=== PATIENT | female | born 1940 | race Caucasian/White ===

== ENCOUNTER → 2023-07-18 08:51 | Outpatient (REF) | payer MEDICARE, OTHER, SELFPAY | LOC: HWRAD 08:51 | PROVIDERS: ATTENDING PHYSICIAN Family Medicine | DX: M25.561 Pain in right knee (principal) | CPT/HCPCS: 73564 ==

== ENCOUNTER → 2023-09-08 11:12 | Outpatient (REF) | payer MEDICARE, OTHER, SELFPAY | LOC: HWRAD 11:12 | PROVIDERS: ATTENDING PHYSICIAN Family Medicine | DX: R31.9 Hematuria, unspecified (principal) | CPT/HCPCS: 74177; Q9967 ==

== ENCOUNTER 2023-10-07 18:32 | Inpatient (IN) | payer MEDICARE, OTHER, SELFPAY ==
[2023-10-07] VITALS (8 sets, daily range): BP systolic 122–151; BP diastolic 54–85; BMI 24.6
[2023-10-07] MEDS: TORADOL 30 MG IM (15:21)
[2023-10-07 15:30] LABS: % Basophils 0.2 % (0-2); % Eosinophils 0.5 % (0-6); % Immature Granulocytes 0.3 % (0-0.5); % Lymphocytes 19.6 % (20.5-51.1); % Monocytes 6.9 % (1.7-9.3); % Neutrophils 72.5 % (42.2-75.2); Absolute Eosinophils 0.1 10^3/uL (0-0.7); Absolute Lymphocytes 1.9 10^3/uL (1.2-3.4); Absolute Monocytes 0.7 10^3/uL (0.1-0.6); Absolute Neutrophils 7.2 10^3/uL (1.4-6.5); Hematocrit 38.4 % (37.0-47.0); Hemoglobin 12.7 g/dL (12.0-16.0); Mean Corp Hgb Conc. 33.1 g/dL (33.0-37.0); Mean Corpuscular Hgb 29.3 pg (27.0-31.0); Mean Corpuscular Volume 88.7 fL (81.0-99.0); Mean Platelet Volume 11.1 fL (7.4-10.4); Nucleated Red Blood Cells % 0 %; Platelet Count 167 10^3/uL (130-400); Red Blood Cell Count 4.33 10^6/uL (4.20-5.40); Red Cell Dist. Width 13.9 % (11.5-14.5); White Blood Cell Count 9.9 10^3/uL (4.8-10.8)
[2023-10-07 15:50] LABS: ALT (SGPT) 31 U/L (0-35); AST (SGOT) 38 U/L (14-36); Albumin 4.5 g/dl (3.5-5.0); Alkaline Phosphatase 112 U/L (38-126); Blood Urea Nitrogen 21 mg/dl (7-17); Carbon Dioxide 26 mmol/L (22-30); Chloride 102 mmol/L (98-107); Glucose 94 mg/dl (70-99); Sodium 136 mmol/L (135-145); Total Protein 8.3 g/dl (6.3-8.2); eGFR > 60.00
[2023-10-07] MEDS: LASIX 40 MG IV (17:19)
--- NOTE | 2023-10-07 17:22 | ED.GENMED ---
History of Present Illness
General
Chief Complaint: Musculo-Skeletal Complaint
Source: patient and family
Exam Limitations: none
Time Seen by Provider: 10/07/23 14:11
Travel History
Have you had any contact with someone who has COVID-19?: No
Do you have any symptoms of coronavirus? Fever > 100 degrees, chills, cough, shortness of breath, sore throat, loss of taste or smell, muscle aches, or headache?: No
History of Present Illness
History of Present Illness:
83-year-old female presents with joint pain of the right knee and left hip. Also general weakness. Later on in the middle of her evaluation the daughter noted she is also had some shortness of breath the last few days and is noticed she is much
more short of breath here today. She denies chest pain fever or cough.
Past History
Past History
ED Past Medical History: GERD, HTN, Hypercholesterolemia and Other (Chronic back pain)
ED Past Surgical History: None
Social History
Tobacco: Non-smoker
Alcohol: Occasional
Personal:
Living: with family
Employment: Retired
Review of Systems
Review of Systems
All Other Systems: Not applicable
Constitutional: Denies fever
Cardiac: Denies chest pain or syncope
ABD/GI: Reports no symptoms
Phy Exam
Physical Exam
Physical Exam:
GENERAL: Alert and oriented. Mildly tachypneic at rest
EYE: Orbits normal.
NECK: Supple, no significant adenopathy.
ENT: Pharynx without erythema
CARDIAC: Regular rate and rhythm without any obvious murmurs.
LUNGS: Mildly tachypneic. Rales in both bases
ABDOMEN: Soft, without focal tenderness or distention
NEUROLOGICAL: Alert and oriented , grossly non-focal
SKIN: Warm and dry, no rash or lesion, no discoloration, skin intact.
MUSCULOSKELETAL: No edema,no deformity.Good color. Good range of motion of the right knee. Mild tenderness over the left greater trochanter. All other extremities negative
PSYCH: Normal and appropriate interaction.
Course
Orders/Labs/Results
Orders:
Orders
10/07/23 Breakfast
Cholesterol Lowering
At Your Request: Full Participation
Fluid Restriction: 1500 mL/day (50 oz)
Cholesterol Lowering: Sodium, 2 Gram
10/07/23 14:45
Ketorolac [Toradol] 30 mg IM NOW STA
CXR2 [CR Chest - 2 Views ] Urgent
Comment:
Reason For Exam: Short of breath
Hip, Left 2-3 Views [CR Hip - LT w/wo Pel 2-3 Vw*] Urgent
Comment:
Reason For Exam: Nontraumatic left hip pain
Include a pelvis x-ray?: No
Knee, Right 4 or More Views [CR Knee- Right 4 Or More View*] Urgent
Comment:
Reason For Exam: Nontraumatic progressive pain
10/07/23 14:47
EKG [Electrocardiogram (*1)] Urgent
Reason for Study: Shortness of Breath
EKG- Treatment ONCE
10/07/23 14:55
CMP [Comprehensive Metabolic Panel] Urgent
Complete Blood Count/With Diff Urgent
10/07/23 16:35
Add On- LAB Urgent
Tests Added?: probnp
IV Insert/Care/Rem.- Treatment PRN
10/07/23 16:53
NT-proBNP Urgent
Troponin I Urgent
10/07/23 16:56
Furosemide [Lasix] 40 mg IV NOW STA
10/07/23 18:12
Admit/Transfer Patient As Directed
Co-Sign Provider:
Level of Care: Inpatient admission
Assign to:: Telemetry
Physician / Group: mariama kennedy
Diagnosis: Acute CHF exacerbation
Reason for Telemetry: Arrhythmia
Date to Stop Telemetry: 10/10/23
Time to Stop Telemetry: 11:00
Reason for Hospitalization: Acute CHF exacerbation
Expected length of stay greater than two midnights?: Yes
ELOS- Estimated Length of Stay in days: 3
I certify the patient meets the requirements for IP care: Yes
Nursing to Place Non Medication Order As Directed
Physician Order: notify MD when med rec done
Above order entered?: Yes
10/07/23 18:13
Code Status As Directed
Resuscitation Status: Full Code
10/07/23 18:16
DX Deep Vein Thrombosis Video Routine
10/07/23 18:17
CARDIOLOGY CONSULT Routine
Consulting Provider: Jacinta Blackburn
Was physician already notified: Yes
10/07/23 18:18
Venous Doppler Lwr Ext Bilat [US Periph Venous LOWER Ext Edgar] Urgent
Comment:
Reason For Exam: LE swelling
10/07/23 18:22
Ot Eval And Treat Routine
Pt Eval And Treat Routine
Activity Level: As Tolerated
10/07/23 18:23
Hydrocodone 7.5/APAP 325 [[place] 7.5/325] 1 tablet PO Q6HPRN PRN
Lorazepam [Ativan] 0.5 mg PO TIDPRN PRN
10/07/23 19:50
Bisacodyl [Dulcolax] 10 mg RECTAL [id number] PRN
Docusate W/Senna [Senokot-S] 1 tablet PO BIDPRN PRN
Polyethylene Glycol Powder [Miralax] 17 grams PO DAILYPRN PRN
10/07/23 19:50
Echo 2D MMode Color/Doppler [Echo 2D MMode Color/Doppler] Routine
Reason for Study: CHF
Activity As Directed
Activity Level: As Tolerated
Intake/ Output As Directed
Frequency: Per unit guidelines
Sequential Compression Device [Pneumatic Compression Sleeves] As Directed
Type: Knee high
Vital Signs As Directed
Frequency: Per unit guidelines
Weight As Directed
Frequency: Daily
Pulse Ox/spot Check [RESP] Routine
Quantity: 1
DX Deep Vein Thrombosis Video Routine
10/07/23 23:06
Troponin I Q6H
10/08/23 08:00
Furosemide [Lasix] 40 mg IV DAILY
Pantoprazole [Protonix] 40 mg PO DAILY
10/08/23 08:15
Basic Metabolic Panel IN AM
Complete Blood Count/With Diff IN AM
10/08/23 08:32
Troponin I Q6H
10/08/23 18:00
Enoxaparin Sodium [Lovenox] 40 mg SC QPM
10/09/23 06:00
Basic Metabolic Panel IN AM
Complete Blood Count/With Diff IN AM
10/10/23 11:00
DC Protocol for Telemetry ONCE
Abnormal Lab Results
10/07/23
14:55
MPV 11.1 H fL
(7.4-10.4)
Absolute Neuts (auto) 7.2 H 10^3/uL
(1.4-6.5)
Absolute Monos (auto) 0.7 H 10^3/uL
(0.1-0.6)
Lymphocytes % 19.6 L %
(20.5-51.1)
BUN 21 H mg/dl
(7-17)
Total Bilirubin 2.0 H mg/dl
(0.2-1.3)
AST 38 H U/L
(14-36)
Total Protein 8.3 H g/dl
(6.3-8.2)
10/07/23 14:55
10/07/23 14:55
Vital Signs
Initial and Last Documented VS:
Initial Vital Signs
Temp Pulse Resp BP Pulse Ox
98.2 F 64 17 134/59 99
10/07/23 12:14 10/07/23 12:14 10/07/23 12:14 10/07/23 12:14 10/07/23 12:14
Last Documented Vital Signs
Temp Pulse Resp BP Pulse Ox
98.6 F 84 16 147/76 98
10/08/23 07:42 10/08/23 08:12 10/08/23 07:42 10/08/23 08:12 10/08/23 08:00
*Radiology
Radiology exam reviewed: preliminary read by ED provider (CHF) and radiology read reviewed (CHF)
*Pulse Oximetry
Patient hypoxic: no
*EKG
Interpreted by ED Provider?: Yes
Interpretation: abnormal
Comparison EKG: changes noted
Heart Rate: 79
Rate: normal
Rhythm: sinus
Truro: normal axis
Interval: normal interval
QRS Pattern: right bundle branch block
Ischemia: non-specific ST changes
*[employer] Interpretation
Rate: normal
Interpretation: normal
Heart Rate: 80
Rhythm: sinus
*Critical Care Note
Total Time (30-74mins, 75-104mins- exclusive of procedures): Not Applicable
Data Reviewed
Review of Other/Old Records Reveals: Labs and Testing
ED Attending Note
-
Portions of this chart may have been created with voice recognition software.� Occasional wrong word or��sound alike� substitutions may have occurred due to the inherent limitations of voice recognition software.
Discharge Plan
Departure
Patient Disposition: Admit
Date of Disposition: 10/07/23
Time of Disposition: 17:46
Presentation/result/management discussed w/ accepting MD/DO: Hospitalist
Discharge Problem:
CHF
Interventions
Interventions:
*Risk Screen - Suicide Last Done: 10/07/23 19:57
*General Assessment Last Done: 10/07/23 12:14
*Neglect/Abuse Screening Last Done: 10/07/23 19:31
ED- Fall Risk Assessment Last Done: 10/07/23 19:31
*ED COVID-19 Vaccine History Last Done: 10/07/23 12:14
*Nursing Disposition Last Done: 10/07/23 19:31
ED-Musculoskeletal Assessment Last Done: 10/07/23 17:00
Discharge Date and Time
Discharge Date/Time: 10/07/23 19:32
[2023-10-07 17:40] LABS: NT-proBNP 3750 pg/ml
--- NOTE | 2023-10-07 18:16 | HPS.HSE ---
Family Physician
-
Family Physician: Vicente Banerjee
Chief Complaint
-
Shortness of breath, lower extremity pain
History of Present Illness
83-year-old female with past medical history of GERD, hypertension, hyperlipidemia, chronic back pain, osteoarthritis, anxiety came to the hospital with left hip and right knee pain. Patient also noted generalized weakness. While patient was being
evaluated she also had some shortness of breath. Chest x-ray concerning for pulmonary edema. Per daughter at bedside patient supposed to be on furosemide which she is not taking. Denies any chest pain. Denies any abdominal pain, nausea,
vomiting, diarrhea, constipation. X-rays of hip and knee consistent with arthritis.
Medical History
Past Medical History
Past Medical History: Reports Arrhythmia, HTN, Hypercholesterolemia and Other (osteoarthirtis)
Past Surgical History: Reports None
Social History
Tobacco: Non-smoker
Alcohol: Occasional
Family History
Family History: Not pertinent
Allergies / Home Medications
Allergies reflects when Allergies were last updated in [facility].
Home Medications with original date entered in [facility]
Allergy/Medication List:
Allergies
Allergy/AdvReac Type Severity Reaction Status Date / Time
No Known Allergies Allergy Verified 11/08/22 10:39
Home Medications
simvastatin 20 mg tablet 20 mg PO QPM High Cholesterol 09/30/11
amlodipine 5 mg tablet 5 mg PO DAILY Blood Pressure 04/09/12
Lactobac no.2-Bifidobac no.1-S. thermo 112.5 billion cell capsule (Visbiome) 1 cap PO DAILY Gastrointestinal Issue 11/08/22
aspirin 81 mg tablet,delayed release 81 mg PO DAILY Blood Clot Prevention/Tx 11/08/22
hydrocodone 7.5 mg-acetaminophen 325 mg tablet 1 tab PO Q6HPRN PRN moderate pain 11/08/22
lorazepam 0.5 mg tablet 0.5 mg PO QIDPRN PRN anxiety 11/08/22
nitrofurantoin monohydrate/macrocrystals 100 mg capsule 100 mg PO .BIDX5D Infection 11/08/22
rabeprazole 20 mg tablet,delayed release 20 mg PO DAILY Gastrointestinal Issue 11/08/22
Review of Systems
-
History Source: Patient
A 12 point ROS was completed and negative except as noted: Yes
Respiratory: Reports Trouble Breathing
Musculoskeletal: Reports Joint Pain
Physical Exam
Vital Signs
Vital Signs
Temp Pulse Resp BP Pulse Ox
98.2 F 70 17 148/83 99
10/07/23 12:14 10/07/23 17:19 10/07/23 12:14 10/07/23 17:19 10/07/23 12:14
Physical Exam
HEENT: Anicteric and Moist mucous membranes
Respiratory: Clear and Non Labored Respirations; No Wheezes
Cardiac: S1/S2 and Regular Rhythm
Breast: Deferred by me
GI: Soft, Non Tender, Non Distended and Normal Bowel Sounds
Rectal: Deferred by Provider
Genito-urinary: No Cohen
Musculoskeletal: Edema, Left Lower Extremity and Edema, Right Lower Extremity
Neuro: Awake and Alert
Psych: Calm
Laboratory Results
-
10/07/23 14:55
10/07/23 14:55
Laboratory Results
Total Bilirubin 2.0 mg/dl (0.2-1.3) H 10/07/23 14:55
AST 38 U/L (14-36) H 10/07/23 14:55
ALT 31 U/L (0-35) 10/07/23 14:55
Alkaline Phosphatase 112 U/L (38-126) 10/07/23 14:55
Troponin I 0.020 ng/ml 10/07/23 16:53
Data Reviewed
-
Diagnostic Radiology: Report Reviewed by me, Discussed with Patient and Discussed with Family
Lab Data: Labs Reviewed by me, Discussed with Patient and Discussed with Family
Impression/Plan
-
Shortness of breath secondary to acute CHF
Echo 2022 with EF 50 to 55%
BNP elevated
Consult cardiology
start IV Lasix; update echo
Monitor I's and O's, daily weight; fluid restriction
trend trops
Left hip and right knee pain secondary to arthritis
Monitor
PT/OT
History of hypertension
restart home meds when med rec done
History of GERD
History of anxiety
Spinal stenosis
DVTppx
lovenox
Full code; confirmed with patient and daughter
I spent a total of 77 minutes with the patient or on the floor. More than 50% of this time involved counseling and coordination of care.
[2023-10-07] MEDS: ATIVAN 0.5 MG PO (22:17)
[2023-10-07 23:48] LABS: Troponin I 0.018 ng/ml
[2023-10-08] VITALS (8 sets, daily range): BP systolic 114–150; BP diastolic 64–76; PULSE 68; O2SAT 96–100; BMI 23.9
[2023-10-08] MEDS: LASIX 40 MG IV (08:12)
[2023-10-08] MEDS: PROTONIX 40 MG PO (08:12)
[2023-10-08 09:08] LABS: % Basophils 0.2 % (0-2); % Eosinophils 0.7 % (0-6); % Immature Granulocytes 0.4 % (0-0.5); % Lymphocytes 12.2 % (20.5-51.1); % Monocytes 6.5 % (1.7-9.3); Absolute Eosinophils 0.1 10^3/uL (0-0.7); Absolute Lymphocytes 1.1 10^3/uL (1.2-3.4); Absolute Monocytes 0.6 10^3/uL (0.1-0.6); Absolute Neutrophils 7.2 10^3/uL (1.4-6.5); Hematocrit 38.2 % (37.0-47.0); Hemoglobin 12.8 g/dL (12.0-16.0); Mean Corp Hgb Conc. 33.5 g/dL (33.0-37.0); Mean Corpuscular Volume 86.4 fL (81.0-99.0); Mean Platelet Volume 11.2 fL (7.4-10.4); Nucleated Red Blood Cells % 0 %; Platelet Count 207 10^3/uL (130-400); Red Blood Cell Count 4.42 10^6/uL (4.20-5.40); Red Cell Dist. Width 13.5 % (11.5-14.5)
--- NOTE | 2023-10-08 09:18 | CON.CAR ---
Consultation
Consultation Request
Date/Time Consultation Requested: 10/08/2023
Date/Time Consultation Performed: 10/08/2023
Reason for Consultation: CHF
Medical History
-
Chief Complaint: Shortness of breath
History of Present Illness:
83-year-old female, well-known to Dr. White, with past medical history of GERD, hypertension, hyperlipidemia, chronic back pain, osteoarthritis, anxiety came to the hospital with left hip and right knee pain. Patient also noted generalized weakness.
While patient was being evaluated she also had some shortness of breath. Chest x-ray concerning for pulmonary edema.
Patient reported that she was feeling shortness of breath and difficulty to do activity of daily living for the past couple of days. She also noted that she was supposed to be taking Lasix which was prescribed as needed but has not been taking
despite being short of breath and weight gain. She also reported that patient was tachycardic and not herself. Patient lives alone and her daughter was concerned for her wellbeing. She ended up taking her to the ER and was noted to have mild CHF
and pulmonary edema. We are consulted for continued care.
Last echo 01/17/2023: LVEF 50% moderate MR.
Past Medical History
Past Medical History: Arrhythmias, HTN and Hypercholesterolemia
Social History
Tobacco: Non-Smoker
Alcohol: Occasional
Personal: Single
Living: Other (Lives with a cat)
Family History
Family History: Reviewed & Not Pertinent
Allergies / Home Medications
Allergy/AdvReac Type Severity Reaction Status Date / Time
No Known Allergies Allergy Verified 11/08/22 10:39
�Medication �Instructions �Recorded �Confirmed �Type
simvastatin 20 mg tablet 20 mg PO QPM High Cholesterol 09/30/11 11/08/22 History
amlodipine 5 mg tablet 5 mg PO DAILY Blood Pressure 04/09/12 10/08/23 History
Lactobac no.2-Bifidobac no.1-S. 1 cap PO DAILY Gastrointestinal 11/08/22 11/08/22 History
thermo 112.5 billion cell capsule Issue
(Visbiome)
aspirin 81 mg tablet,delayed 81 mg PO DAILY Blood Clot 11/08/22 11/08/22 History
release Prevention/Tx
hydrocodone 7.5 mg-acetaminophen 1 tab PO Q6HPRN PRN moderate pain 11/08/22 10/08/23 History
325 mg tablet
lorazepam 0.5 mg tablet 0.5 mg PO QIDPRN PRN anxiety 11/08/22 10/08/23 History
nitrofurantoin 100 mg PO .BIDX5D Infection 11/08/22 11/08/22 History
monohydrate/macrocrystals 100 mg
capsule
rabeprazole 20 mg tablet,delayed 20 mg PO DAILY Gastrointestinal 11/08/22 10/08/23 History
release Issue
atorvastatin PO QPM 10/08/23 History
Review of Systems
-
History Source: Patient
All other systems: Negative unless noted
Physical Exam
Vital Signs
Temp Pulse Resp BP Pulse Ox
98.6 F 84 16 147/76 98
10/08/23 07:42 10/08/23 08:12 10/08/23 07:42 10/08/23 08:12 10/08/23 08:00
Lab Results
Troponin I 0.018 ng/ml 10/07/23 23:06
Coo-E-Kplmrpgdqwh Pept 3750 pg/ml 10/07/23 16:53
Physical Exam
General: Well Developed, Well Nourished and No Apparent Distress
HEENT: Normocephalic, Anicteric and Moist Mucous Membranes
Respiratory: Crackles and Non Labored Respirations
Cardiac: S1/S2, Regular Rhythm and Murmur
GI: Soft, Non Tender and Non Distended
Musculoskeletal: No Clubbing, No Cyanosis and No Edema
Neuro: Awake, Alert and AO x 3
Impression / Plan
-
83-year-old woman with history of paroxysmal arrhythmia, hypertension, hyperlipidemia, GERD, osteoarthritis and anxiety with moderate mitral regurgitation presented with shortness of breath and swelling in the lower extremities along with difficulty
breathing with exertion.
Acute on chronic heart failure
-Heart failure with preserved ejection fraction last echo in January 2023 shows LVEF of 55%
-Mild acute on chronic heart failure with preserved ejection fraction
-Patient is mildly fluid overloaded and may need 1 to 2 days of IV Lasix.
-Obtain echo in the morning
Mitral regurgitation
-Moderate MR noted in January 2023.
-Mild fluid overload may have exacerbated mitral regurgitation precipitating heart failure decompensation
Data Reviewed
-
EKG: Tracing Personally Visualized and interpreted
Radiology: Report Reviewed by me
Ultrasound: Report Reviewed by me
Labs: Labs Reviewed by me
Old Records: Reviewed
Total Time Spent with Patient (in minutes): 55
[2023-10-08 09:32] LABS: Troponin I 0.029 ng/ml
[2023-10-08 09:33] LABS: Blood Urea Nitrogen 21 mg/dl (7-17); Calcium 9.8 mg/dl (8.4-10.2); Carbon Dioxide 30 mmol/L (22-30); Chloride 97 mmol/L (98-107); Estimated Creatinine Clearance 49 ml/min; Glucose 90 mg/dl (70-99); Potassium 3.5 mmol/L (3.5-5.1); Sodium 139 mmol/L (135-145); eGFR > 60.00
[2023-10-08] MEDS: MIRALAX 17 GRAMS PO (09:33)
--- NOTE | 2023-10-08 10:37 | CM ---
Patient seen bedside.
IA completed.
patient lives alone with her cat.
1 story home with a ramp to enter.
Ambulates with a Rollator.
patient independent prior to admission.
Patient does not drive, her daughter transports.
Patient had VN in the past, thinks it was [facility].
Agreeable to VN if required.
PT/OT evals (P).
PCP: Dr Banerjee
Pharmacy: [facility]
Plan: home with possible [facility]N needs.
--- NOTE | 2023-10-08 12:25 | W.PN.HOSP.TC ---
Today's Communication/Plan
-
Monitor vitals
See plan
PT/OT
Continue with IV Lasix
Update echo
Assessment / Plan
Assessment / Plan
HEENT: Anicteric and Moist mucous membranes
Respiratory: Clear and Non Labored Respirations; No Wheezes
Cardiac: S1/S2 and Regular Rhythm
GI: Soft, Non Tender, Non Distended and Normal Bowel Sounds
Genito-urinary: No Cohen
Musculoskeletal: Edema, Left Lower Extremity and Edema, Right Lower Extremity
Neuro: Awake and Alert
Psych: Calm
Shortness of breath secondary to acute CHF
Echo 2022 with EF 50 to 55%
BNP elevated
Consult cardiology
cw IV Lasix; update echo
Monitor I's and O's, daily weight; fluid restriction
trend trops
Left hip and right knee pain secondary to arthritis
Monitor
PT/OT
History of hypertension
restart home meds when med rec done
History of GERD
History of anxiety
Spinal stenosis
DVTppx
lovenox
Full code; confirmed with patient and daughter on admission
Anticipated Discharge: 24 - 48 hours
Subjective/Interval History
-
Date of Service: October 08, 2023
denies nausea
Objective Data
-
Labs:
Laboratory Results
10/08/23
08:15
WBC 9.0
Hgb 12.8
Hct 38.2
Plt Count 207 D
Sodium 139
Potassium 3.5
Chloride 97 L
Carbon Dioxide 30
BUN 21 H
Creatinine 0.6
Glucose 90
Calcium 9.8
Vital Signs:
Vital Signs
Temp Pulse Resp BP Pulse Ox
98.6 F 84 16 147/76 98
10/08/23 07:42 04/28/24 08:12 10/08/23 07:42 10/08/23 08:12 10/08/23 08:00
I&O
10/07/23 10/08/23 10/09/23
06:59 06:59 06:59
Intake Total 240 / 240
Output Total 2099 / 2099
Balance -1859 / -1859
[2023-10-08] MEDS: KCL 40 MEQ PO (12:40)
[2023-10-08] MEDS: NORVASC 5 MG PO (12:41)
[2023-10-08] MEDS: LOVENOX 40 MG SC (16:48)
[2023-10-08] MEDS: NORCO 7.5/325 1 TABLET PO (22:01)
[2023-10-08] MEDS: ATIVAN 0.5 MG PO (22:05)
[2023-10-09] MEDS: NORCO 7.5/325 1 TABLET PO ×2 (05:17→21:11)
[2023-10-09 06:00] VITALS: BMI 23.1
[2023-10-09 07:26] VITALS: BP 130/69
[2023-10-09 07:59] LABS: % Basophils 0.5 % (0-2); % Eosinophils 3.4 % (0-6); % Immature Granulocytes 0.5 % (0-0.5); % Lymphocytes 24.1 % (20.5-51.1); % Monocytes 10.3 % (1.7-9.3); % Neutrophils 61.2 % (42.2-75.2); Absolute Eosinophils 0.2 10^3/uL (0-0.7); Absolute Lymphocytes 1.5 10^3/uL (1.2-3.4); Absolute Monocytes 0.6 10^3/uL (0.1-0.6); Absolute Neutrophils 3.8 10^3/uL (1.4-6.5); Hemoglobin 11.5 g/dL (12.0-16.0); Mean Corp Hgb Conc. 34.8 g/dL (33.0-37.0); Mean Corpuscular Hgb 29.7 pg (27.0-31.0); Mean Corpuscular Volume 85.3 fL (81.0-99.0); Nucleated Red Blood Cells % 0 %; Platelet Count 215 10^3/uL (130-400); Red Blood Cell Count 3.87 10^6/uL (4.20-5.40); Red Cell Dist. Width 13.5 % (11.5-14.5); White Blood Cell Count 6.1 10^3/uL (4.8-10.8)
[2023-10-09] MEDS: CARDIZEM 5 MG IV (08:33)
[2023-10-09] MEDS: CARDIZEM 125 IV (08:43)
[2023-10-09] MEDS: PROTONIX 40 MG PO (08:46)
[2023-10-09] MEDS: LASIX 40 MG IV (08:46)
[2023-10-09 08:53] LABS: Blood Urea Nitrogen 26 mg/dl (7-17); Calcium 9.1 mg/dl (8.4-10.2); Carbon Dioxide 28 mmol/L (22-30); Chloride 99 mmol/L (98-107); Estimated Creatinine Clearance 42 ml/min; Glucose 97 mg/dl (70-99); Potassium 3.5 mmol/L (3.5-5.1); Sodium 134 mmol/L (135-145); eGFR > 60.00
[2023-10-09] MEDS: NORVASC PO (09:03)
--- NOTE | 2023-10-09 09:14 | W.PN.HOSP.TC ---
Today's Communication/Plan
-
Cardizem IV
Cardiology consult
Stop amlodipine
Assessment / Plan
Assessment / Plan
Gen-AAOx3, NAD
HEENT-NC, AT, anicteric, clear oral mm
Neck-supple
CV-irregular, no M, +S1/S2
Lungs-clear B/L
Abd-soft, NT, ND
Ext-no edema
Musculoskeletal-no cyanosis, clubbing
Skin-warm and dry
Neuro-grossly non-focal
Psych-calm, cooperative
Acute heart failure exacerbation -likely acute heart failure with preserved EF. Await echocardiogram. Currently on IV Lasix 40 mg daily.
Rapid atrial fibrillation -suspect paroxysmal atrial fibrillation history. Atrial fibrillation noted on Holter monitor from 2022. Not on anticoagulation prior to admission. Will defer to cardiology. Cardizem drip started for rate control this
morning.
Hyponatremia -sodium 134. Monitor for now.
Left hip and right knee pain secondary to arthritis
Monitor
PT/OT
Essential hypertension -stop amlodipine as we are starting Cardizem IV.
History of GERD
History of anxiety
Spinal stenosis
Hyperlipidemia
DNR -confirmed with daughter Carissa on the phone today.
Dispo -Home PT versus SNF pending progress with PT.
Daughter Carissa updated on the phone today.
Anticipated Discharge: 24 - 48 hours
Subjective/Interval History
-
Date of Service: October 09, 2023
Patient seen and examined. No complaints.
Objective Data
-
Labs:
Laboratory Results
10/09/23
07:24
WBC 6.1
Hgb 11.5 L
Hct 33.0 L
Plt Count 215
Sodium 134 L
Potassium 3.5
Chloride 99
Carbon Dioxide 28
BUN 26 H
Creatinine 0.7
Glucose 97
Calcium 9.1
Vital Signs:
Vital Signs
Temp Pulse Resp BP Pulse Ox
98.0 F 168 20 138/69 95
10/09/23 07:26 10/09/23 08:33 10/09/23 07:26 10/09/23 08:33 10/09/23 07:26
I&O
10/08/23 10/09/23 10/10/23
06:59 06:59 06:59
Intake Total 240 / 240 650 / 650
Output Total 2100 / 2100 200 / 200 425 / 425
Balance -1860 / -1860 450 / 450 -425 / -425
Review of Systems
-
History Source: Patient
All other systems: Reviewed and negative
--- NOTE | 2023-10-09 09:57 | W.PN.CD ---
Today's Communication / Plan
-
Move Amlodipine to diltiazem
Resume Eliquis
Impression / Plan
-
83-year-old woman with history of paroxysmal arrhythmia, hypertension, hyperlipidemia, GERD, osteoarthritis and anxiety with moderate mitral regurgitation presented with shortness of breath and swelling in the lower extremities along with difficulty
breathing with exertion.
Acute on chronic HFpEF
- For echo
- Will check cost of SGLT inhibitors and ARNI
- Doing well with diuresis
- Na+/fluid restriction, education
Mitral regurgitation
-Moderate MR noted in January 2023.
-Mild fluid overload may have exacerbated mitral regurgitation precipitating heart failure decompensation
AFib,
- Was on Eliquis per PCP office note 08/2023
- Was in AFib for 24 hrs on Holter dated 12/2022
- Was in sinus on admit
- Likely paroxysmal but may have persistent form
- Will add rate control
- Resume Eliquis 2.5 BID (stop ASA) (age and weight => 2.5 bid for AFib)
HTN
Memory
- Is there memory impairment? Pt cannot provide details on recent medical issues/history
Subjective:
Comfortable
Physical Exam
Vital Signs/Labs
Vital Signs
Temp Pulse Resp BP Pulse Ox
98.0 F 168 20 138/69 95
10/09/23 07:26 10/09/23 08:33 10/09/23 07:26 10/09/23 08:33 10/09/23 07:26
10/08/23 10/09/23 10/10/23
06:59 06:59 06:59
Actual Weight 55.537 kg 53.751 kg
10/09/23 07:24
10/09/23 07:24
10/07/23
16:53
Lzd-P-Nybeyovbano Pept 3750
LAB Results
10/07/23 10/07/23 10/08/23
16:53 23:06 08:32
Troponin I 0.020 0.018 0.029
Physical Exam
Constitutional: No acute distress
Cardiovascular: Rhythm/rate is irregular and S1S2 is normal
Respiratory: Respiratory effort normal and Wheeze Absent
GI: Soft and Distention absent
Neuro/Psych: Alert
Data Reviewed
-
Date of Service: October 09, 2023
[2023-10-09 11:00] VITALS: BP 129/87
[2023-10-09] MEDS: ELIQUIS 2.5 MG PO ×2 (11:46→19:43)
--- NOTE | 2023-10-09 12:08 | CM ---
CM received consult for medication costs: Farxiga 10 mg not covered, Jardiance 10 mg $0.00 copay, Entresto 49/51 bid $11.20. CM met with patient, discussed cost of medications, per patient, she is able to afford this. CM discussed PT recommendations
of VN vs SNF, patient declining SNF and would prefer to go home with [facility] as she has had [facility] in the past. TT sent to [facility] for [facility] referral. CM sent TT to Hospitalist with cost of medications, patient reports she is able to afford medications. CM
will continue to follow for discharge planning needs.
Plan; home with [facility] when stable, pending acceptance.
[2023-10-09] MEDS: CARDIZEM 60 MG PO (12:29)
--- NOTE | 2023-10-09 14:42 | VNURNOTE ---
Home Health Liaison met with patient and daughter Carissa at 1300 to discuss [facility] nurse/therapy, visits, schedule and homebound status. Patient is agreeable and understands that visits at home will be 2-3 x per week to assess and teach medical
management. Patient has a scale, unsure if working correctly but her daughter will get a new one if needed.
[facility] brochure provided with contact information. Patient is aware that [facility] will contact her for start of care in 1-2 days after discharge from .
[facility] referral completed in [facility].
[2023-10-09 15:05] VITALS: BP 101/63; PULSE 96; O2SAT 96
[2023-10-09 15:08] VITALS: BP 105/67
[2023-10-09] MEDS: LOPRESSOR 25 MG PO ×2 (17:20→23:02)
[2023-10-09] MEDS: CARDIZEM 90 MG PO ×2 (17:24→21:26)
[2023-10-09 19:15] VITALS: BP 107/66
[2023-10-09] MEDS: ATIVAN 0.5 MG PO (19:43)
[2023-10-09 23:11] VITALS: BP 119/69
[2023-10-10] VITALS (7 sets, daily range): BP systolic 104–125; BP diastolic 58–86; PULSE 73–75; O2SAT 98; BMI 23.5
[2023-10-10] MEDS: NORCO 7.5/325 1 TABLET PO ×2 (05:05→22:25)
[2023-10-10] MEDS: LOPRESSOR 25 MG PO (05:07)
[2023-10-10] MEDS: ELIQUIS 2.5 MG PO ×2 (07:46→20:40)
[2023-10-10] MEDS: CARDIZEM 90 MG PO ×3 (07:46→17:20)
[2023-10-10] MEDS: PROTONIX 40 MG PO (07:46)
[2023-10-10] MEDS: LASIX 40 MG IV (07:49)
[2023-10-10 08:10] LABS: Blood Urea Nitrogen 27 mg/dl (7-17); Calcium 9.4 mg/dl (8.4-10.2); Carbon Dioxide 26 mmol/L (22-30); Chloride 96 mmol/L (98-107); Estimated Creatinine Clearance 33 ml/min; Glucose 101 mg/dl (70-99); Potassium 3.8 mmol/L (3.5-5.1); Sodium 132 mmol/L (135-145); eGFR > 60.00
[2023-10-10] MEDS: ATIVAN 0.5 MG PO ×2 (09:42→20:40)
--- NOTE | 2023-10-10 10:11 | W.PN.HOSP.TC ---
Today's Communication/Plan
-
Echocardiogram
Urine studies
TSH
Fluid restriction
Assessment / Plan
Assessment / Plan
Gen-AAOx3, NAD
HEENT-NC, AT, anicteric, clear oral mm
Neck-supple
CV-irregular, no M, +S1/S2
Lungs-clear B/L
Abd-soft, NT, ND
Ext-no edema
Musculoskeletal-no cyanosis, clubbing
Skin-warm and dry
Neuro-grossly non-focal
Psych-calm, cooperative
Acute heart failure exacerbation -likely acute heart failure with preserved EF. Await echocardiogram. Currently on IV Lasix 40 mg daily.
Rapid atrial fibrillation -suspect paroxysmal atrial fibrillation history. Atrial fibrillation noted on Holter monitor from 2022. Apparently was on Eliquis prior to admission but not listed on admission medications for unclear reasons. Continue
Eliquis. Rate improved on Cardizem and metoprolol.
Hyponatremia -sodium 132. Monitor for now. Check urine studies, TSH. Fluid restriction.
Left hip and right knee pain secondary to arthritis
Monitor
PT/OT
Essential hypertension -stop amlodipine as we are starting Cardizem IV.
History of GERD
History of anxiety
Spinal stenosis
Hyperlipidemia
DNR -confirmed with daughter Carissa on the phone today.
Dispo -Home PT versus SNF pending progress with PT.
Family updated at the bedside.
Anticipated Discharge: Within 24 hours
Subjective/Interval History
-
Date of Service: October 10, 2023
Patient seen and examined. No complaints. Family at the bedside.
Objective Data
-
Labs:
Laboratory Results
10/10/23
06:21
Sodium 132 L
Potassium 3.8
Chloride 96 L
Carbon Dioxide 26
BUN 27 H
Creatinine 0.9
Glucose 101 H
Calcium 9.4
Vital Signs:
Vital Signs
Temp Pulse Resp BP Pulse Ox
97.6 F 75 18 116/80 98
10/10/23 07:00 10/10/23 07:00 10/10/23 07:00 10/10/23 07:00 10/10/23 07:45
I&O
10/09/23 10/10/23 10/11/23
06:59 06:59 06:59
Intake Total 650 / 650 760 / 760
Output Total 200 / 200 1525 / 1525
Balance 450 / 450 -765 / -765
Review of Systems
-
History Source: Patient
All other systems: Reviewed and negative
--- NOTE | 2023-10-10 11:05 | W.PN.CD ---
Today's Communication / Plan
-
Move to Dilt CD 360 in AM
Move to Metoprolol ER 100 q PM
Add Jardiance 10 mg a day
Change Lasix to PO 40 daily
Will need BMP in 2 weeks
Consider adding MRA and ARNI as outpatient
Impression / Plan
-
83-year-old woman with history of paroxysmal arrhythmia, hypertension, hyperlipidemia, GERD, osteoarthritis and anxiety with moderate mitral regurgitation presented with shortness of breath and swelling in the lower extremities along with difficulty
breathing with exertion.
Acute on chronic HFpEF
- Echo 10/09/2023: LVEF 50-55%, mild-mod MR
- Cost of SGLT inhibitors (Jardiance $0 and Entresto $11.20
- Doing well with diuresis => move to PO Lasix
- Na+/fluid restriction, education
- Consider adding MRA and ARNI as outpatient, add Jardiance now
Mitral regurgitation
-Moderate MR noted in January 2023 => now mild to moderate
-Mild fluid overload may have exacerbated mitral regurgitation precipitating heart failure decompensation
AFib,
- Back on Eliquis per PCP office note 08/2023
- Was in AFib for 24 hrs on Holter dated 12/2022
- Was in sinus on admit
- Rate of AFib/flutter now well controlled on mod dose dilt/metoprolol = move to once a day dosing
- Likely paroxysmal but may have persistent form
- Will add rate control
- Resume Eliquis 2.5 BID (stopped ASA) (age and weight => 2.5 bid for AFib)
HTN
Memory
- Is there memory impairment? Pt cannot provide details on recent medical issues/history
Subjective:
Comfortable
Physical Exam
Vital Signs/Labs
Vital Signs
Temp Pulse Resp BP Pulse Ox
97.6 F 75 18 116/80 98
10/10/23 07:00 10/10/23 07:00 10/10/23 07:00 10/10/23 07:00 10/10/23 07:45
10/09/23 10/10/23 10/11/23
06:59 06:59 06:59
Actual Weight 53.751 kg 54.686 kg
10/09/23 07:24
10/10/23 06:21
10/07/23
16:53
Ibo-V-Hrlnpaotpjk Pept 3750
LAB Results
10/07/23 10/07/23 10/08/23
16:53 23:06 08:32
Troponin I 0.020 0.018 0.029
Physical Exam
Constitutional: No acute distress
Cardiovascular: Diastolic murmur absent, Rhythm/rate is irregular and S1S2 is normal
Respiratory: Respiratory effort normal and Lungs clear to auscul.
GI: Soft and Distention absent
Neuro/Psych: Alert
Data Reviewed
-
Date of Service: October 10, 2023
[2023-10-10 12:57] LABS: TSH 1.12 uIU/ml (0.47-4.68)
--- NOTE | 2023-10-10 13:12 | CM ---
Patient seen bedside, patient inquiring about receiving her next dose of anxiety medication, nurse made aware. Patient plan return home with [facility]. CM will continue to follow for discharge planning needs.
Plan; home with [facility].
[2023-10-10] MEDS: TOPROL XL 100 MG PO (20:40)
[2023-10-10] MEDS: CARDIZEM PO (23:15)
[2023-10-11 03:35] VITALS: BP 114/67
[2023-10-11 05:25] VITALS: BMI 23.1
[2023-10-11] MEDS: NORCO 7.5/325 1 TABLET PO (05:41)
[2023-10-11 07:22] VITALS: BP 125/70
[2023-10-11 07:37] LABS: Blood Urea Nitrogen 31 mg/dl (7-17); Calcium 9.3 mg/dl (8.4-10.2); Carbon Dioxide 29 mmol/L (22-30); Chloride 94 mmol/L (98-107); Estimated Creatinine Clearance 33 ml/min; Glucose 100 mg/dl (70-99); Potassium 3.7 mmol/L (3.5-5.1); Sodium 130 mmol/L (135-145); eGFR > 60.00
[2023-10-11 07:39] LABS: Glucose - Point of Care 109 mg/dl (70-99)
[2023-10-11] MEDS: CARDIZEM PO (09:16)
[2023-10-11] MEDS: ELIQUIS 2.5 MG PO (09:32)
[2023-10-11] MEDS: JARDIANCE 10 MG PO (09:32)
[2023-10-11] MEDS: PROTONIX 40 MG PO (09:32)
[2023-10-11] MEDS: CARDIZEM CD 360 MG PO (09:32)
--- NOTE | 2023-10-11 09:32 | W.PN.HOSP.TC ---
Today's Communication/Plan
-
Discharge if okay with cardiology
Assessment / Plan
Assessment / Plan
Gen-AAOx3, NAD
HEENT-NC, AT, anicteric, clear oral mm
Neck-supple
CV-irregular, no M, +S1/S2
Lungs-clear B/L
Abd-soft, NT, ND
Ext-no edema
Musculoskeletal-no cyanosis, clubbing
Skin-warm and dry
Neuro-grossly non-focal
Psych-calm, cooperative
Acute heart failure exacerbation -likely acute heart failure with preserved EF. Echocardiogram shows LVEF 55 to 60%, normal regional wall motion, normal RV function, severely dilated left atrium, moderate right atrial dilation, mild AR. Now on
oral Lasix 40 mg daily per cardiology.
Rapid atrial fibrillation -suspect paroxysmal atrial fibrillation history. Atrial fibrillation noted on Holter monitor from 2022. Apparently was on Eliquis prior to admission but not listed on admission medications for unclear reasons. Continue
Eliquis. Rate improved on Cardizem and metoprolol.
Hyponatremia -sodium 130. Fluid restriction. TSH normal. Urine studies not done so far.
Left hip and right knee pain secondary to arthritis
Monitor
PT/OT
Essential hypertension -stop amlodipine as we are starting Cardizem IV.
History of GERD
History of anxiety
Spinal stenosis
Hyperlipidemia
DNR
Dispo -stable for discharge home today with [facility]. Will discuss with cardiology. Outpatient follow-up.
32 minutes spent in discharge process.
Anticipated Discharge: Today
Subjective/Interval History
-
Date of Service: October 11, 2023
Patient seen and examined. No complaints.
Objective Data
-
Labs:
Laboratory Results
10/11/23
05:57
Sodium 130 L
Potassium 3.7
Chloride 94 L
Carbon Dioxide 29
BUN 31 H
Creatinine 0.9
Glucose 100 H
Calcium 9.3
Vital Signs:
Vital Signs
Temp Pulse Resp BP Pulse Ox
97.9 F 86 16 125/70 97
10/11/23 07:22 10/11/23 07:22 10/11/23 07:22 10/11/23 07:22 10/11/23 07:22
I&O
10/10/23 10/11/23 10/12/23
06:59 06:59 06:59
Intake Total 760 / 760 900 / 900
Output Total 1525 / 1525 400 / 400
Balance -765 / -765 500 / 500
Review of Systems
-
History Source: Patient
All other systems: Reviewed and negative
[2023-10-11] MEDS: LASIX 40 MG PO (09:33)
--- NOTE | 2023-10-11 09:48 | W.PN.CD ---
Today's Communication / Plan
-
OK for home on current meds
We will see in office at request of PCP
Impression / Plan
-
83-year-old woman with history of paroxysmal arrhythmia, hypertension, hyperlipidemia, GERD, osteoarthritis and anxiety with moderate mitral regurgitation presented with shortness of breath and swelling in the lower extremities along with difficulty
breathing with exertion.
Acute on chronic HFpEF
- Echo 10/09/2023: LVEF 50-55%, mild-mod MR
- Cost of SGLT inhibitors (Jardiance $0 and Entresto $11.20
- Doing well with diuresis => move to PO Lasix
- Na+/fluid restriction, education
- Consider adding MRA and ARNI as outpatient, continue Jardiance now
Mitral regurgitation
-Moderate MR noted in January 2023 => now mild to moderate
-Mild fluid overload may have exacerbated mitral regurgitation precipitating heart failure decompensation
AFib,
- Back on Eliquis per PCP office note 08/2023
- Was in AFib for 24 hrs on Holter dated 12/2022
- Was in sinus on admit
- Rate of AFib/flutter now well controlled on mod dose dilt/metoprolol
- Likely paroxysmal but may have persistent form
- Will add rate control
- Resume Eliquis 2.5 BID (stopped ASA) (age and weight => 2.5 bid for AFib)
HTN
Memory
- Is there memory impairment? Pt cannot provide details on recent medical issues/history
Subjective:
Comfortable
Physical Exam
Vital Signs/Labs
Vital Signs
Temp Pulse Resp BP Pulse Ox
97.9 F 86 16 125/70 97
10/11/23 07:22 10/11/23 07:22 10/11/23 07:22 10/11/23 07:22 10/11/23 07:22
10/10/23 10/11/23 10/12/23
06:59 06:59 06:59
Actual Weight 54.686 kg 53.6 kg
10/09/23 07:24
10/11/23 05:57
TSH 1.12 uIU/ml (0.47-4.68) 10/10/23 06:21
10/07/23
16:53
Int-Q-Dfnkbqpafpq Pept 3750
Physical Exam
Constitutional: No acute distress
Cardiovascular: Rhythm & rate is regular and Pedal edema is absent
Respiratory: Respiratory effort normal and Lungs clear to auscul.
GI: Soft
Neuro/Psych: Alert
Data Reviewed
-
Date of Service: October 11, 2023
--- NOTE | 2023-10-11 10:00 | W.DS.TRANS ---
DC Summary - Contact Worker [employer]
-
Discharge Instructions:
Discharge Diagnosis/Procedures Heart failure exacerbation, rapid atrial
fibrillation, hyponatremia
Diet Low Cholesterol,Low Fat,2 Gram Sodium,Restrict
fluids to 48 oz
Activity As tolerated
Driving Restrictions No driving
Bathing Restrictions None
Blood Work BMP in 1 week with your primary care doctor
Other Services VN
Instructions: *PCP/Other Commercial Driver Heart Failure Instructions
Stand-Alone Forms:
Changes to Home Medications: Yes
Discharge Medications:
DC Medications w/original date entered in [facility] [facility]
Lactobac no.2-Bifidobac no.1-S. thermo 112.5 billion cell capsule (Visbiome) 1 cap PO DAILY Gastrointestinal Issue 11/08/22
hydrocodone 7.5 mg-acetaminophen 325 mg tablet 1 tab PO Q6HPRN PRN moderate pain 11/08/22
lorazepam 0.5 mg tablet 0.5 mg PO QIDPRN PRN anxiety 11/08/22
rabeprazole 20 mg tablet,delayed release 20 mg PO DAILY Gastrointestinal Issue 11/08/22
atorvastatin PO QPM 10/08/23
apixaban 2.5 mg tablet (Eliquis) 2.5 mg PO BID #60 tabs 10/11/23
diltiazem HCl 180 mg capsule,extended release 24 hr 360 mg (2 x 180 mg) PO DAILY #30 caps 10/11/23
empagliflozin 10 mg tablet (Jardiance) 10 mg PO DAILY #30 tabs 10/11/23
furosemide 40 mg tablet 40 mg PO DAILY #30 tabs 10/11/23
metoprolol succinate 100 mg tablet,extended release 24 hr 100 mg PO DAILY@2000 #30 tabs 10/11/23
polyethylene glycol 3350 17 gram oral powder packet (HealthyLax) 17 g PO DAILYPRN PRN constipation #0 ea 10/11/23
Home Medication Changes
Stop aspirin
Stop amlodipine
Pending Results: No
--- NOTE | 2023-10-11 10:33 | CM ---
Patient seen, discussed plan for discharge home with [facility]N. Patient reports her daughter will provide transportation home when she is ready. IMM reviewed, signed, placed in chart. CM discussed cost of Eliquis $11.20. Patient inquiring if she can take
her anxiety medication before discharge. CM will continue to follow for discharge planning needs.
Plan; home with [facility] and daughter.
[2023-10-11 11:30] VITALS: BP 131/73
[2023-10-11] MEDS: ATIVAN 0.5 MG PO (13:27)
== END 2023-10-11 14:14 | disposition home health service (06) | DRG 291 ==
LOC: 4 WEST ACU 18:32
PROVIDERS: Internal Medicine Cardiovascular Disease; ADMITTING PHYSICIAN Internal Medicine; ATTENDING PHYSICIAN Hospitalist; CONSULT PHYSICIAN Internal Medicine Cardiovascular Disease; EMERGENCY PHYSICIAN Emergency Medicine; FAMILY PHYSICIAN Family Medicine
DX: I11.0 Hypertensive heart disease with heart failure (principal); I50.33 Acute on chronic diastolic (congestive) heart failure; I48.19 Other persistent atrial fibrillation; E87.1 Hypo-osmolality and hyponatremia; Z79.82 Long term (current) use of aspirin
CPT/HCPCS: 71046; 73502; 73564; 80048; 80053; 82962; 83880; 84443; 84484; 85025; 93005; 93306; 93970; 96372; 96374; 97110; 97162; 97166; 97530; 97535; 99285

== ENCOUNTER 2023-11-19 16:23 | Inpatient (IN) | payer MEDICARE, OTHER, SELFPAY ==
[2023-11-19] VITALS (16 sets, daily range): BP systolic 109–161; BP diastolic 55–89; BMI 26.8
[2023-11-19 13:00] LABS: % Basophils 0.2 % (0-2); % Eosinophils 0.1 % (0-6); % Immature Granulocytes 0.4 % (0-0.5); % Lymphocytes 10.2 % (20.5-51.1); % Monocytes 6.5 % (1.7-9.3); % Neutrophils 82.6 % (42.2-75.2); Absolute Immature Granulocytes 0.1 10^3/uL (0-0.05); Absolute Lymphocytes 1.6 10^3/uL (1.2-3.4); Absolute Neutrophils 13.1 10^3/uL (1.4-6.5); Hematocrit 38.6 % (37.0-47.0); Hemoglobin 13.2 g/dL (12.0-16.0); Mean Corp Hgb Conc. 34.2 g/dL (33.0-37.0); Mean Corpuscular Hgb 29.3 pg (27.0-31.0); Mean Corpuscular Volume 85.8 fL (81.0-99.0); Mean Platelet Volume 9.7 fL (7.4-10.4); Nucleated Red Blood Cells % 0 %; Platelet Count 212 10^3/uL (130-400); Red Cell Dist. Width 14.4 % (11.5-14.5); White Blood Cell Count 15.8 10^3/uL (4.8-10.8)
[2023-11-19] MEDS: ZOSYN 100 IV (13:09)
[2023-11-19 13:13] LABS: Lactic Acid 1.4 mmol/L (0.7-2.0)
[2023-11-19 13:33] LABS: ALT (SGPT) 556 U/L (0-35); AST (SGOT) 416 U/L (14-36); Albumin 4.3 g/dl (3.5-5.0); Alkaline Phosphatase 417 U/L (38-126); Blood Urea Nitrogen 22 mg/dl (7-17); Calcium 9.8 mg/dl (8.4-10.2); Carbon Dioxide 33 mmol/L (22-30); Chloride 93 mmol/L (98-107); Glucose 111 mg/dl (70-99); Potassium 3.6 mmol/L (3.5-5.1); Sodium 138 mmol/L (135-145); Total Bilirubin 1.2 mg/dl (0.2-1.3); Total Protein 8.3 g/dl (6.3-8.2); eGFR > 60.00
--- NOTE | 2023-11-19 14:30 | PHANOTE ---
med rec note- daughter went home to get patient medication list, used ecw recent admission and pharmacy
--- NOTE | 2023-11-19 15:06 | ED.GENMED ---
History of Present Illness
General
Chief Complaint: Jaw Pain
Source: patient and family
Time Seen by Provider: 11/19/23 12:16
Travel History
Have you had any contact with someone who has COVID-19?: No
Do you have any symptoms of coronavirus? Fever > 100 degrees, chills, cough, shortness of breath, sore throat, loss of taste or smell, muscle aches, or headache?: No
History of Present Illness
History of Present Illness:
83-year-old female presents emergency room complaining of pain and swelling left lower jaw. Patient has been having the symptoms for the past couple weeks but noted symptoms have become worse over the past couple days. Currently she is spitting
out her secretions because she has too much pain to swallow them. She denies any shortness of breath. No true dental pain.
Past History
Past History
ED Past Medical History: GERD, HTN, Hypercholesterolemia and Other (Chronic back pain)
ED Past Surgical History: None
Social History
Tobacco: Non-smoker
Alcohol: Occasional
Personal:
Living: with family
Employment: Retired
Phy Exam
Physical Exam
Physical Exam:
General: Awake, Alert, Oriented X3. No acute distress.
Vitals: unremarkable
Head: Atraumatic
Eyes: Pupils equal, EOMI
Mouth: Some elevation of the tongue tenderness to palpation of the sublingual tissues on the left. No stridor.
Throat: Airway intact, no exudates
Neck: Trachea midline
Lungs: Clear and equal b/l
Heart: Regular rate, no murmurs
Abd: Soft, Nontender, No pulsatile mass
Neuro: Nonfocal
Skin: Warm, dry, no rash
Extremities: pulses equal b/l, no edema
Course
Orders/Labs/Results
Orders:
Orders
11/19/23 11:32
EKG [Electrocardiogram (*1)] Urgent
Reason for Study: Fatigue / Weakness
EKG- Treatment ONCE
11/19/23 12:36
CT Neck With Iv Contrast Urgent
Comment:
Reason For Exam: swelling ? abscess/cesar's
Piperacillin/Tazo 4.5 Gram [Zosyn] 4.5 gram in 100 ml IV NOW
11/19/23 12:51
Complete Blood Count/With Diff Urgent
Comprehensive Metabolic Panel Urgent
Lactic Acid Q4H
Comment: CANCEL 2nd LACTIC ACID IF 1st LACTIC ACID IS LESS THAN 2
Blood Culture Q30M
DEVANTE Source: Blood/Venous
Specimen Description:
Blood Culture Q30M
DEVANTE Source: Blood/Venous
Specimen Description:
11/19/23 Dinner
NPO
Allow oral meds: Yes
Allow clear liquids: Sips of Clears
NPO with Ice Chips: Yes
11/19/23 15:34
Dexamethasone Sod Phosphate [Decadron] 8 mg IV NOW STA
11/19/23 16:10
Lorazepam [Ativan] 0.5 mg PO QIDPRN PRN
11/19/23 16:11
Admit/Transfer Patient As Directed
Co-Sign Provider:
Level of Care: Inpatient admission
Assign to:: ICU
Physician / Group: hospitalist
Diagnosis: left mandibular abscess
Reason for Hospitalization: oropharyngeal abscess with airway impact
Expected length of stay greater than two midnights?: Yes
ELOS- Estimated Length of Stay in days: 2
I certify the patient meets the requirements for IP care: Yes
11/19/23 16:12
Code Status As Directed
Resuscitation Status: Full Code
11/19/23 17:40
Acetaminophen [Tylenol] 650 mg PO Q4HPRN PRN
Dextrose 5%/0.45%Sodchl 1000ML [D5/0.45%NaCl] 1,000 ml IV 40 mls/hr
Ondansetron Injectable [Zofran] 4 mg IV Q6HPRN PRN
Oxycodone [Roxicodone] 5 mg PO Q6HPRN PRN
11/19/23 17:40
ORAL MAXILLO FACIAL CONSULT Urgent
Consulting Provider: Liliam Hebert
Was physician already notified: Yes
Reason for Consult: left submandibular abscess with mass effect
Activity As Directed
Activity Level: With Assistance
Head of Bed-Restrictions As Directed
Vital Signs As Directed
Frequency: Per unit guidelines
DX Deep Vein Thrombosis Video Routine
11/19/23 18:00
Enoxaparin Sodium [Lovenox] 30 mg SC QPM
11/19/23 20:00
Piperacillin/Tazo 3.375 Gram [Zosyn] 3.375 gram in 50 ml IV Q6H
11/19/23 22:00
Metoprolol Xl [Toprol Xl] 100 mg PO HS
11/20/23 05:41
Complete Blood Count/No Diff IN AM
Hepatitis A IgM Antibody IN AM
Hepatitis B Core Ab, IgM IN AM
Hepatitis B Surface Antibody IN AM
Hepatitis B Surface Antigen IN AM
Hepatitis C Antibody IN AM
11/20/23 08:00
Diltiazem Extended Release [Cardizem Cd] 360 mg PO DAILY
Pantoprazole [Protonix IV] 40 mg IV DAILY
Abnormal Lab Results
11/19/23
12:51
WBC 15.8 H 10^3/uL
(4.8-10.8)
Abs Immat Gran (auto) 0.1 H 10^3/uL
(0-0.05)
Absolute Neuts (auto) 13.1 H 10^3/uL
(1.4-6.5)
Absolute Monos (auto) 1.0 H 10^3/uL
(0.1-0.6)
Neutrophils % 82.6 H %
(42.2-75.2)
Lymphocytes % 10.2 L %
(20.5-51.1)
Chloride 93 L mmol/L
(98-107)
Carbon Dioxide 33 H mmol/L
(22-30)
BUN 22 H mg/dl
(7-17)
Glucose 111 H mg/dl
(70-99)
AST 416 H U/L
(14-36)
ALT 556 H* U/L
(0-35)
Alkaline Phosphatase 417 H U/L
(38-126)
Total Protein 8.3 H g/dl
(6.3-8.2)
11/19/23 12:51
11/19/23 12:51
Vital Signs
Initial and Last Documented VS:
Initial Vital Signs
Temp Pulse Resp BP Pulse Ox
99.9 F 69 17 130/67 94
11/19/23 11:02 11/19/23 11:02 11/19/23 11:02 11/19/23 11:02 11/19/23 11:02
Last Documented Vital Signs
Temp Pulse Resp BP Pulse Ox
97.7 F 55 15 123/46 94
11/21/23 11:15 11/21/23 08:25 11/21/23 08:25 11/21/23 11:10 11/20/23 20:49
MDM/Problems Addressed
Differential Diagnosis Includes:
Dental abscess, Cesar angina, angioedema
MDM/Problems Addressed:
Patient presents with pain and swelling noted in her left neck. Imaging was obtained and shows a structure in the sublingual tissue which may represent abscess or dilated salivary duct. Patient symptoms have been progressing. White count noted to
be somewhat elevated. Patient's LFTs also noted to be elevated. Zosyn initiated for potential deep space infection. Given the patient is spitting out her secretions she will be admitted to the intensive care unit for careful airway monitoring.
Case discussed with Dr. Hebert who is on-call for [facility].
*Radiology
Radiology exam reviewed: radiology read reviewed
*Pulse Oximetry
Patient hypoxic: no
*Critical Care Note
Total Time (30-74mins, 75-104mins- exclusive of procedures): Not Applicable
Patient Management
Social determinants of health affecting care: Financial situation
ED Attending Note
-
Portions of this chart may have been created with voice recognition software.� Occasional wrong word or��sound alike� substitutions may have occurred due to the inherent limitations of voice recognition software.
Discharge Plan
Departure
Patient Disposition: Admit
Date of Disposition: 11/19/23
Time of Disposition: 15:13
Admit to: ICU
Presentation/result/management discussed w/ accepting MD/DO: Hospitalist
Condition: Serious
Discharge Problem:
Abscess of sublingual space
Interventions
Interventions:
*Risk Screen - Suicide Last Done: 11/19/23 11:50
*General Assessment Last Done: 11/19/23 11:13
*Neglect/Abuse Screening Last Done: 11/19/23 11:50
ED- Fall Risk Assessment Last Done: 11/19/23 17:09
*ED COVID-19 Vaccine History Last Done: 11/19/23 11:13
*Nursing Disposition Last Done: 11/19/23 17:09
ED-EENT Assessment Last Done: 11/19/23 11:53
ED- Cardiac Assessment Last Done: 11/19/23 11:53
Discharge Date and Time
Discharge Date/Time: 11/19/23 17:30
[2023-11-19] MEDS: DECADRON 8 MG IV (15:45)
--- NOTE | 2023-11-19 15:59 | HPS.HSE ---
Family Physician
-
Family Physician: Vicente Banerjee
Chief Complaint
-
Throat pain and swelling
History of Present Illness
This is an 83-year-old female with past medical history of atrial fibrillation on anticoagulation with Eliquis, diabetes, GERD, presenting to worsening pain and swelling on the lower left side of her mouth and throat.
She has been having swelling and pain in her left lower jaw for a couple weeks. She has been on amoxil for a few days. She is now barely able to swallow due to the pain. She reported a prior episode about 3 years ago with spontaneous resolution.
On exam she has alteration in her voice and is spitting out her secretions. No stridor. The floor of her mouth appears a bit elevated and is tender. She has some swelling an induration of the left submandibular region.
In the ED she had a low-grade temp of 99.9, she was hemodynamically stable, ECG was normal sinus rhythm with a rate of 74 and right bundle unchanged from prior. A CT soft tissue of the neck showed a 3 x 1.5 x 1.5 collection in the left
submandibular region with a mass effect affecting the left oropharyngeal and hypopharyngeal regions. Differential includes abscess versus ductal abnormality. She had leukocytosis to 15,000. CBC otherwise unremarkable. Chemistries within normal
limits. She has elevations in AST as well as ALT.
Medical History
Past Medical History
Past Medical History: Reports Arrhythmia (Permanent Atrial Fibrillation), CHF, GERD, HTN, Hypercholesterolemia and NIDDM
Past Surgical History: Reports None
Social History
Tobacco: Non-smoker
Alcohol: None
Drug: None
Employment: Retired
Family History
Family History: Not pertinent
Allergies / Home Medications
Allergies reflects when Allergies were last updated in [employer].
Home Medications with original date entered in [employer]
Allergy/Medication List:
Allergies
Allergy/AdvReac Type Severity Reaction Status Date / Time
No Known Allergies Allergy Verified 11/19/23 11:16
Home Medications
Lactobac no.2-Bifidobac no.1-S. thermo 112.5 billion cell capsule (Visbiome) 1 cap PO DAILY Gastrointestinal Issue 11/08/22
hydrocodone 7.5 mg-acetaminophen 325 mg tablet 1 tab PO Q6HPRN PRN moderate pain 11/08/22
lorazepam 0.5 mg tablet 0.5 mg PO QIDPRN PRN anxiety 11/08/22
rabeprazole 20 mg tablet,delayed release 20 mg PO QPM Gastrointestinal Issue 11/08/22
atorvastatin 20 mg tablet (Lipitor) 20 mg PO QPM ##0 10/08/23
apixaban 2.5 mg tablet (Eliquis) 2.5 mg PO BID #60 tabs 10/11/23
diltiazem HCl 180 mg capsule,extended release 24 hr 360 mg (2 x 180 mg) PO DAILY #30 caps 10/11/23
empagliflozin 10 mg tablet (Jardiance) 10 mg PO DAILY #30 tabs 10/11/23
furosemide 40 mg tablet 40 mg PO DAILY #30 tabs 10/11/23
polyethylene glycol 3350 17 gram oral powder packet (HealthyLax) 17 g PO DAILYPRN PRN constipation #0 ea 10/11/23
amoxicillin 875 mg-potassium clavulanate 125 mg tablet 1 tab PO BID 11/19/23
metoprolol succinate 100 mg tablet,extended release 24 hr 100 mg PO HS 11/19/23
Review of Systems
-
History Source: Patient
Constitutional: Reports No Symptoms
EENT: Reports Sore Throat, Mouth Pain and Mouth Swelling
Respiratory: Reports No Symptoms
Cardiac: Reports No Symptoms
Abdomen/GI: Reports No Symptoms
: Reports No Symptoms
Musculoskeletal: Reports No Symptoms
Skin: Reports No Symptoms
Neurological: Reports No Symptoms
Endocrine: Reports No Symptoms
Hematologic/Lymphatic: Reports No Symptoms
Psych: Reports No Symptoms
Physical Exam
Vital Signs
Vital Signs
Temp Pulse Resp BP Pulse Ox
99.9 F 84 22 130/55 93
11/19/23 11:02 11/19/23 15:45 11/19/23 15:45 11/19/23 15:00 11/19/23 15:45
Physical Exam
General: Appears in Distress
HEENT: NormoCephalic, Anicteric, Moist mucous membranes and Other (No stridor. The floor of her mouth appears a bit elevated and is tender. She has some swelling an induration of the left submandibular region)
Respiratory: Clear
Cardiac: S1/S2 and Regular Rhythm
Breast: Deferred by me
GI: Soft, Non Tender and Non Distended
Rectal: Deferred by Provider
Genito-urinary: Deferred by me
Musculoskeletal: No Clubbing, No Cyanosis and No Edema
Skin: Warm
Neuro: AO x 3
Hematologic/Lymphatic: No Lymphadenopathy
Psych: Calm
Laboratory Results
-
11/19/23 12:51
11/19/23 12:51
Laboratory Results
Lactic Acid Cancelled 11/19/23 16:45
Total Bilirubin 1.2 mg/dl (0.2-1.3) 11/19/23 12:51
AST 416 U/L (14-36) H 11/19/23 12:51
ALT 556 U/L (0-35) H* 11/19/23 12:51
Alkaline Phosphatase 417 U/L (38-126) H 11/19/23 12:51
Data Reviewed
-
CT Scan: Report Reviewed by me
Medical Tests (Nuc Med, Echo, EKG etc): Image Personally Visualized and interpreted
Lab Data: Labs Reviewed by me
Old Records: Reviewed
Impression/Plan
-
IMPRESSION:
PLAN:
1. Submandibular abscess with mass effect - Swelling and pain x 2 weeks with failure of outpatient abx. Soft tissue abscess of the left submandibular region with mass effect. No stridor currently but has risk of expanding.
- admit to icu for airway management if needed.
- continue zosyn 3.375 q 6 hours for now
- decadron 10mg iv x 1 given in ED, monitor for now
- pain control and antiemetics
- NPO except meds, sips and ice chips fo rnow
- maintenance fluids
- consult to [facility] per ED
- senior center manager consult
2. pAFIB -
- continue rate ocntrol with metoprolol 100 hs
- holding apixaban pending [facility] eval & possible drainage of fluid collection
- continue dilt
3. CHF - stable.
- holding lasix fo rnow
- holding jardiance
4. Transaminitis - Unclear etilogy. No abdominal pain. Possibly induced by new med (augmentin)
- acute hep panel
- RUQ u/s
- trend lft
DVT PPX - lovenox sq while holding apixaban
Full Code
[2023-11-19] MEDS: ATIVAN 0.5 MG PO ×2 (16:44→23:47)
--- NOTE | 2023-11-19 16:59 | CON.ORS ---
Consultation - Oral Surgery
Subjective
83 year old female with past medical history of Afib on Eliquis, HTN, diabetes, GERD who presented to the ED today due to increased pain and swelling in her left mouth and neck. She states that she has been having pain in the area for a few weeks
and was prescribed antibiotics a few days ago by her PCP without improvement in her symptoms. She stated that she has had a similar episode previously which resolved without progression. She reports dysphagia and is having difficulty tolerating her
secretions. She denies difficulty breathing or SOB.
Past Medical History
Past Medical History: Arrhythmia (Atrial fibrillation), CHF, GERD, HTN, Hypercholesterolemia and NIDDM
Past Surgical History: Other (knee surgery)
Family History: Not Pertinent
Alcohol: None
Drug: None
Tobacco: Non-smoker
Medications / Allergies
Allergies
Allergy/AdvReac Type Severity Reaction Status Date / Time
No Known Allergies Allergy Verified 11/19/23 11:16
Active Medications
Generic Name Dose Route Start Last Admin
Trade Name Freq PRN Reason Stop Dose Admin
Diltiazem HCl 360 mg 11/20/23 08:00
Diltiazem 180 Mg Extended Release (24 H) Capsule PO 12/18/23 07:59
DAILY JESUS
Lorazepam 0.5 mg 11/19/23 16:10 11/19/23 16:44
Lorazepam 0.5 Mg Tablet PO 12/17/23 16:09 0.5 mg
QIDPRN PRN Administration
anxiety
Metoprolol Succinate 100 mg 11/19/23 22:00
Metoprolol 100 Mg Extended Release Tablet PO 12/17/23 21:59
HS JESUS
Review of Systems
Constitutional: Reports No Symptoms
Eyes: Reports No Symptoms
ENT: Reports Other (Oral pain and swelling, dysphagia)
Cardiovascular: Reports No Symptoms
Respiratory: Reports No Symptoms
Vital Signs
Temp Pulse Resp BP Pulse Ox
37.7 C 84 22 142/63 95
11/19/23 11:02 11/19/23 16:45 11/19/23 16:45 11/19/23 16:00 11/19/23 16:45
Physical Exam
General: Awake, Alert and Oriented x 3
Extra-oral Exam: Edema, Tenderness to Palpation and Other (Left submandibular swelling)
Intra-oral Exam: Other (Normal EZIO, induration and elevation of the left floor of mouth, no purulent drainage, edentulous mandible with dental implants and fixed prosthesis with no associated pathology)
CT Results
There is 3.0 x 1.5 x 1.5 cm low-density fluid collection with enhancing wall in the left submandibular space anteromedial to the slightly enlarged left submandibular gland. I favor that this reflects dilatation of [place]'s duct suggesting distal
ductal obstruction, however, abscess is included in the differential diagnosis.
This lesion is associated with mass effect with effacement of the left oropharyngeal and hypopharyngeal airways and there is associated edema versus inflammatory change in the overlying soft tissues as well as edematous thickening of the epiglottis
to approximately 9 mm
Assessment / Plan
83 year old female with past medical history of Afib on Eliquis, HTN, diabetes, GERD who presented to the ED today due to increased pain and swelling in her left mouth and neck which does not appear to have a dental source and appears to be
consistent with sialadenitis of the left submandibular gland. Based on physical and radiographic examination, I have recommended hydration, continuation of antibiotics, and evaluation by ENT.
Data Reviewed
CT Scan: Image personally visualized and interpreted and Report Reviewed by me
Labs: Labs Reviewed by me
--- NOTE | 2023-11-19 17:04 | CON.INTV ---
Consultation
Consultation Request
Date/Time Consultation Requested: 11/19/2023 - 1516
Date/Time Consultation Performed: 11/19/2023 - 1639
Requesting Provider: Dr. Mcmullen
Performing Provider: Dr. Jon
Reason for Consultation: Airway watch
Medical History
-
Chief Complaint: Sore throat + swelling
History of Present Illness:
83-year-old female with a past medical history of A-fib on Eliquis DM type II, GERD, CHF and hypertension who presents with left lower jaw swelling for a few weeks which has been worsening. She now is having difficulty swallowing her own
secretions. She is on amoxicillin for this started as an outpatient. In triage she was afebrile to 99.9 �F, pulse rate 69, breathing at 17 breaths/min, BP 130/67 and saturating 94% on room air. Labs showed leukocytosis to 15.8, elevated LFTs with
AST 416, ALT 556, ALP 417, with normal T. bili. Blood cultures were collected. CT neck was obtained showing a 3 x 1.5 x 1.5 cm low-density fluid collection with enhancing wall in the left submandibular space anteromedial to a slightly enlarged
left submandibular gland. Differential includes Noonan's duct dilatation versus abscess. There is mass effect with effacement of the left oropharyngeal and hypopharyngeal airways with associated edema in the overlying soft tissues and edematous
thickening of the epiglottis. Patient given Zosyn and Decadron in the ER. Given concern of this fluid collection and her difficulty tolerating her secretions with mass effect on her supraglottic airways, patient is now being admitted to the ICU
for close monitoring of her respiratory status. Critical care services consulted for additional management/recommendations.
When I saw the patient she was in bed, in no acute distress. She says she is breathing okay. She is saturating 96%, heart rate 83 and BP 141/67. She denies chest pain, headache, abdominal pain, fevers or chills.
PMHx: A-fib on Eliquis, DM type II, GERD, CHF, hypertension
PSHx: Left knee replacement (2009), lumbar surgery, bilateral cataract surgery, appendectomy, total abdominal hysterectomy, cholecystectomy
Past Medical History
Past Medical History: Other (Above as per HPI)
Past Surgical History: Other (Above as per HPI)
Social History
Tobacco: Non-smoker
Alcohol: None
Drug: None
Family History
Family History: Reviewed & Not Pertinent
Allergies / Home Medications
Allergies
Allergy/AdvReac Type Severity Reaction Status Date / Time
No Known Allergies Allergy Verified 11/19/23 11:16
Home Medications
�Medication �Instructions �Recorded �Confirmed �Last Taken �Type
Lactobac no.2-Bifidobac no.1-S. 1 cap PO DAILY Gastrointestinal 11/08/22 11/19/23 11/19/23 History
thermo 112.5 billion cell capsule Issue
(Visbiome)
hydrocodone 7.5 mg-acetaminophen 1 tab PO Q6HPRN PRN moderate pain 11/08/22 11/19/23 Unknown History
325 mg tablet
lorazepam 0.5 mg tablet 0.5 mg PO QIDPRN PRN anxiety 11/08/22 11/19/23 Unknown History
rabeprazole 20 mg tablet,delayed 20 mg PO QPM Gastrointestinal Issue 11/08/22 11/19/23 11/08/22 History
release
atorvastatin 20 mg tablet (Lipitor) 20 mg PO QPM ##0 10/08/23 11/19/23 Unknown History
apixaban 2.5 mg tablet (Eliquis) 2.5 mg PO BID #60 tabs 10/11/23 11/19/23 11/19/23 Rx
diltiazem HCl 180 mg 360 mg (2 x 180 mg) PO DAILY #30 10/11/23 11/19/23 11/19/23 Rx
capsule,extended release 24 hr caps
empagliflozin 10 mg tablet 10 mg PO DAILY #30 tabs 10/11/23 11/19/23 11/19/23 Rx
(Jardiance)
furosemide 40 mg tablet 40 mg PO DAILY #30 tabs 05/01/24 06/09/24 06/09/24 Rx
polyethylene glycol 3350 17 gram 17 g PO DAILYPRN PRN constipation 10/11/23 11/19/23 Unknown Rx
oral powder packet (HealthyLax) #0 ea
amoxicillin 875 mg-potassium 1 tab PO BID 11/19/23 11/19/23 11/19/23 History
clavulanate 125 mg tablet
metoprolol succinate 100 mg 100 mg PO HS 11/19/23 11/19/23 Unknown History
tablet,extended release 24 hr
Review of Systems
-
History Source: Patient
All other systems: Negative unless noted
Vitals / Labs / Diagnostic Testing
Vital Signs
Temp Pulse Resp BP Pulse Ox
99.9 F 84 22 142/63 95
11/19/23 11:02 11/19/23 16:45 11/19/23 16:45 11/19/23 16:00 11/19/23 16:45
Lab Data
11/19/23 12:51
11/19/23 12:51
Diagnostic Testing:
Physical Exam
-
HEENT: Normocephalic, Anicteric and Other (No stridor appreciated upon auscultation of neck)
Cardiovascular: S1/S2 and Peripheral Edema (Negative)
Respiratory: Wheeze (Negative), Rales (Negative), Rhonchi (Negative) and Non-Labored Respirations
GI: Soft, Non Distended, Non Tender and Normal Bowel Sounds
Neurology: Awake, Alert and Tremors (Negative)
Skin: Warm and Dry
General: Comfortable and Fever (Negative)
Assessment
-
Assessment: 83-year-old female with a past medical history of A-fib on Eliquis DM type II, GERD, CHF and hypertension who presents with left lower jaw swelling for a few weeks which has been worsening. She now is having difficulty swallowing her
own secretions. She is on amoxicillin for this started as an outpatient. In triage she was afebrile to 99.9 �F, pulse rate 69, breathing at 17 breaths/min, BP 130/67 and saturating 94% on room air. Labs showed leukocytosis to 15.8, elevated LFTs
with AST 416, ALT 556, ALP 417, with normal T. bili. Blood cultures were collected. CT neck was obtained showing a 3 x 1.5 x 1.5 cm low-density fluid collection with enhancing wall in the left submandibular space anteromedial to a slightly
enlarged left submandibular gland. Differential includes Noonan's duct dilatation versus abscess. There is mass effect with effacement of the left oropharyngeal and hypopharyngeal airways with associated edema in the overlying soft tissues and
edematous thickening of the epiglottis. Patient given Zosyn and Decadron in the ER. Given concern of this fluid collection and her difficulty tolerating her secretions with mass effect on her supraglottic airways, patient is now being admitted to
the ICU for close monitoring of her respiratory status. Critical care services consulted for additional management/recommendations.
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
Impression:
#Fluid collection anterior medial to an enlarged left-sided submandibular gland, suspicious for abscess vs Noonan's duct dilatation with supraglottic airway displacement and soft tissue edema with edematous thickening of epiglottis
#Leukocytosis
#Elevated serum bicarbonate level likely due to chronic metabolic alkalosis
#Transaminitis with elevated AST, ALT and ALP with normal T. bili
Plan:
- Continue broad spectrum Abx
- Consult oral maxillofacial surgery as patient may need aspiration of this suspected left submandibular abscess
- Aspiration precautions, keep head of bed elevated >30-45�
- Keep strict NPO for now until her respiratory status improves
- If her secretions become difficult for her to handle and are watery, then would give a dose of glycopyrrolate
- Continue telemetry and close monitoring of respiratory status
- Maintain SpO2 >90-94%
- If patient develops any worsening shortness of breath or develop stridor then she needs to be intubated immediately
- I reviewed her CT neck myself and there is no stenosis of her airway, so I do not believe that she will require elective intubation prophylactically, and I am confident that antibiotics + a dose of Decadron should improve her symptoms
- I am weary to continue IV steroids given the differential of a left-sided submandibular abscess, as I do not want to depress her immune system in the setting of an active infection
- Maintain MAP>65
- Replete electrolytes with K>4, Mg>2
- Maintain euglycemia with goal BG 140-180
- prn nebulized bronchodilators
- Incentive spirometer - can use this in 24-48 hrs after her respiratory status improves
- DVT ppx
Critical care statement: A total of 40 minutes of critical care time was provided for this patient today. This includes management of unstable vital signs, evaluation of the patient at bedside, reviewing the patient's pertinent medical records
including radiographs, microbiology, laboratory evaluations, and discussion with primary team, consultants, pharmacy, nutrition, physical therapy, case management, charge nurse, critical care nursing, and respiratory therapy.
Data:
CT Neck with IV Contrast 11-19-2023:
There is 3.0 x 1.5 x 1.5 cm low-density fluid collection with enhancing wall in the left submandibular space anteromedial to the slightly enlarged left submandibular gland. I favor that this reflects dilatation of [place]on[place]'s duct suggesting distal
ductal obstruction, however, abscess is included in the differential diagnosis.
This lesion is associated with mass effect with effacement of the left oropharyngeal and hypopharyngeal airways and there is associated edema versus inflammatory change in the overlying soft tissues as well as edematous thickening of the epiglottis
to approximately 9 mm
[2023-11-19] MEDS: ROXICODONE 5 MG PO (18:08)
[2023-11-19] MEDS: D5/0.45%NACL 1000 IV (18:08)
[2023-11-19] MEDS: LOVENOX 30 MG SC (18:10)
[2023-11-19 18:18] LABS: Glucose - Point of Care 116 mg/dl (70-99)
[2023-11-19 18:36] LABS: INR 1.36; PT 16.6 Sec (11.4-14.6)
[2023-11-19 18:37] LABS: APTT 42.1 Sec (23.4-35.0)
[2023-11-19] MEDS: ZOSYN 50 IV (19:25)
--- NOTE | 2023-11-19 19:48 | PTCARENOTE ---
Cannot verify vitals prior to 1900, previous shift.
--- NOTE | 2023-11-19 19:58 | PTCARENOTE ---
Received patient AAOx4, following commands, reporting pain in left jaw, tender to touch. States pain has improved post roxicodone. Daughter at bedside. Normal sinus 70s-80s with right BBB, normothermic. +1 bilateral lower extremity edema, BP stable,
130s/70s. On room air, saturating 93%, lung sounds diminished throughout. Last BM 2 days ago, patients normal pattern is every 2-3 days. Abdomen soft, round, nontender, positive bowel sounds. Commode to void. Skin intact besides swelling in left
jaw. Right antecubital #20 IV, patent, WNL, D5 1/2 NSS infusing per order. Call otero within reach.
[2023-11-19] MEDS: TOPROL XL 100 MG PO (21:12)
--- NOTE | 2023-11-19 23:46 | PTCARENOTE ---
Patient assessment unchanged from previous, call otero within reach.
[2023-11-19 23:55] LABS: Glucose - Point of Care 132 mg/dl (70-99)
[2023-11-20] VITALS (20 sets, daily range): BP systolic 91–140; BP diastolic 43–98; BMI 24.6
[2023-11-20] MEDS: ZOSYN 50 IV ×4 (01:58→19:38)
--- NOTE | 2023-11-20 04:58 | PTCARENOTE ---
Put on 2 liters nasal cannula while sleeping, desaturating to 87%. Otherwise patient assessment unchanged from previous, call otero within reach.
[2023-11-20 05:52] LABS: Hematocrit 36.7 % (37.0-47.0); Hemoglobin 12.6 g/dL (12.0-16.0); Mean Corp Hgb Conc. 34.3 g/dL (33.0-37.0); Mean Corpuscular Volume 84.4 fL (81.0-99.0); Platelet Count 208 10^3/uL (130-400); Red Blood Cell Count 4.35 10^6/uL (4.20-5.40); Red Cell Dist. Width 14.1 % (11.5-14.5)
[2023-11-20 06:03] LABS: Glucose - Point of Care 157 mg/dl (70-99)
[2023-11-20 06:15] LABS: ALT (SGPT) 345 U/L (0-35); AST (SGOT) 176 U/L (14-36); Albumin 3.6 g/dl (3.5-5.0); Alkaline Phosphatase 314 U/L (38-126); Blood Urea Nitrogen 31 mg/dl (7-17); Calcium 9.2 mg/dl (8.4-10.2); Carbon Dioxide 29 mmol/L (22-30); Chloride 96 mmol/L (98-107); Direct Bilirubin 0.7 mg/dl (0.0-0.4); Estimated Creatinine Clearance 33 ml/min; Glucose 151 mg/dl (70-99); Potassium 3.5 mmol/L (3.5-5.1); Sodium 138 mmol/L (135-145); Total Protein 7.1 g/dl (6.3-8.2); eGFR > 60.00
[2023-11-20] MEDS: NOVOLOG FLEXPEN-LOW RESISTANCE SC ×2 (07:51→12:22)
[2023-11-20] MEDS: PROTONIX IV 40 MG IV (07:52)
[2023-11-20 08:01] LABS: Glucose - Point of Care 128 mg/dl (70-99)
--- NOTE | 2023-11-20 08:16 | W.PN.HOSP.TC ---
Today's Communication/Plan
-
see A/P
Assessment / Plan
Assessment / Plan
HPI: 83-year-old female with past medical history of atrial fibrillation on anticoagulation with Eliquis, diabetes, GERD, presented with worsening pain and swelling on the lower left side of her mouth and throat.
She has been having swelling and pain in her left lower jaw for a couple of weeks. She has been on amoxil for a few days. She is now barely able to swallow due to the pain. She reported a prior episode about 3 years ago with spontaneous resolution.
On exam she has alteration in her voice and is spitting up secretions. No stridor. The floor of her mouth appears a bit elevated and is tender. She has some swelling an induration of the left submandibular region.
In the ED she had a low-grade temp of 99.9, she was hemodynamically stable, ECG was normal sinus rhythm with a rate of 74 and right bundle unchanged from prior. A CT soft tissue of the neck showed a 3 x 1.5 x 1.5 collection in the left submandibular
region with a mass effect affecting the left oropharyngeal and hypopharyngeal regions. Differential includes abscess versus ductal abnormality. She had leukocytosis to 15,000. CBC otherwise unremarkable. Chemistries within normal limits. She has
elevations in AST as well as ALT.
CT neck:
There is 3.0 x 1.5 x 1.5 cm low-density fluid collection with enhancing wall in the left submandibular space anteromedial to the slightly enlarged left submandibular gland. I favor that this reflects dilatation of [place]'s duct suggesting distal
ductal obstruction, however, abscess is included in the differential diagnosis.
This lesion is associated with mass effect with effacement of the left oropharyngeal and hypopharyngeal airways and there is associated edema versus inflammatory change in the overlying soft tissues as well as edematous thickening of the epiglottis
to approximately 9 mm
A/P:
# Sepsis POA due to Submandibular mass/abscess with mass effect. No stridor currently but has risk of expanding.
failure of outpatient abx.
continue zosyn 3.375 q 6 hours for now
s/p decadron 8mg iv x 1 given in ED
pain control and antiemetics
NPO except meds, sips and ice chips for now
Very gentle IVF while NPO
OMFS consulted
mining analyst consulted
# paroxysmal AFIB
continue rate control with metoprolol 100 hs and Cardizem 360 mg daily
holding apixaban pending OMF eval & possible drainage of fluid collection
# Chronic diastolic heart failure- stable.
holding Lasix fo rnow
holding jardiance
Very gentle IVF while NPO
# Transaminitis, unclear etiology, possibly reactive, improving
Follow hepatitis panel
Follow Abd US
trend LFT
DVT PPX - lovenox sq while holding apixaban
Full Code
DW grandson at bedside
Anticipated Discharge: > 48 hours
Subjective/Interval History
-
Date of Service: November 20, 2023
Objective Data
-
Labs:
Laboratory Results
11/20/23
05:41
WBC 12.0 H
Hgb 12.6
Hct 36.7 L
Plt Count 208
Sodium 138
Potassium 3.5
Chloride 96 L
Carbon Dioxide 29
BUN 31 H
Creatinine 0.9
Glucose 151 H
Calcium 9.2
Total Bilirubin 1.0
AST 176 H
ALT 345 H
Alkaline Phosphatase 314 H
Vital Signs:
Vital Signs
Temp Pulse Resp BP Pulse Ox
36.6 C 77 13 134/64 97
11/20/23 03:06 11/20/23 06:00 11/20/23 06:00 11/20/23 05:00 11/20/23 06:00
I&O
11/19/23 11/20/23 11/21/23
06:59 06:59 06:59
Intake Total 580 / 580
Output Total 250 / 250
Balance 330 / 330
Review of Systems
-
EENT: Reports Other (L mandibular swelling and pain)
Physical Exam
-
General: Well Developed, Well Nourished, Comfortable and Conversant
HEENT: Normocephalic, Atraumatic, Moist Mucous Membranes, Oxygen (2L NC) and Other (L mandibular swelling and pain)
Respiratory: Clear to Auscultation and Non Labored Respirations; Negative Wheezes, Rales or Accessory Resp Muscle Use
Cardiac: Regular Rhythm and S1/S2
GI: Soft, Nontender and Nondistended
Musculoskeletal: No Clubbing, No Cyanosis and No Edema
Neuro: Awake and Alert
Psych: Calm and Intact Judgement/Insight
Data Reviewed
-
CT Scan: Image personally visualized and interpreted and Report Reviewed by me
Labs: Labs Reviewed by me
[2023-11-20] MEDS: NSS with KCL 40 MEQ 1000 IV (09:37)
--- NOTE | 2023-11-20 09:44 | PTCARENOTE ---
Received pt sleeping.Awakens to voice.Speech is appropriate.Denies pain.Assisted OOB to chair with 1 person minimal assist.SR with !st degree AVB noted.IVF infusing as ordered.POX 94-96% on RA.Lungs CTA.Denies SOB or difficulty
breathing.NPO.+BM.Unable to swallow po Cardizem because of pill size and difficulty swallowing this admission.MD and PharmD made aware.Pt is able to swallow her saliva and sips of eater without difficulty.Voiding in commode.Plan of care discussed
with pt.
--- NOTE | 2023-11-20 10:22 | VNURNOTE ---
Patient is current with [facility] since 10/11 w/SN/PT, will monitor progress and plan at discharge.
[2023-11-20] MEDS: CARDIZEM 90 MG PO ×3 (11:01→23:06)
--- NOTE | 2023-11-20 12:16 | PTCARENOTE ---
Pt assessed.No change in assessment noted.UD abdomen completed as ordered.
[2023-11-20 12:20] LABS: Glucose - Point of Care 132 mg/dl (70-99)
--- NOTE | 2023-11-20 12:33 | CM ---
CM met with pt and dtr/Carissa bedside
Pt admitted to ICU with sepsis secondary to submandibular mass/abscess
Pt resides alone in a [place] with ramp entrance
She is independent with a rollator
Does not drive- dtr is supportive and provides assistance with caring for her cat and errands
Pt is current with [facility]
PCP- Vicente Burrell
Rx- [facility]
Pt will likely benefit from therapy orders once appropriate as she resides alone
CM will continue to follow for dc planning
[facility]charge Disposition- [facility]
--- NOTE | 2023-11-20 13:01 | W.PN.INTV ---
Today's Communication / Plan
Recommendations
Continue antibiotics
Local pain control
Monitor airway
Wait for ENT evaluation
N.p.o. for now until clear.
Hopefully can transfer to telemetry later today.
Assessment
-
Assessment: 83-year-old female with a past medical history of A-fib on Eliquis DM type II, GERD, CHF and hypertension who presents with left lower jaw swelling for a few weeks which has been worsening. She now is having difficulty swallowing her
own secretions. She is on amoxicillin for this started as an outpatient. In triage she was afebrile to 99.9 �F, pulse rate 69, breathing at 17 breaths/min, BP 130/67 and saturating 94% on room air. Labs showed leukocytosis to 15.8, elevated LFTs
with AST 416, ALT 556, ALP 417, with normal T. bili. Blood cultures were collected. CT neck was obtained showing a 3 x 1.5 x 1.5 cm low-density fluid collection with enhancing wall in the left submandibular space anteromedial to a slightly
enlarged left submandibular gland. Differential includes [place]'s duct dilatation versus abscess. There is mass effect with effacement of the left oropharyngeal and hypopharyngeal airways with associated edema in the overlying soft tissues and
edematous thickening of the epiglottis. Patient given Zosyn and Decadron in the ER. Given concern of this fluid collection and her difficulty tolerating her secretions with mass effect on her supraglottic airways, patient is now being admitted to
the ICU for close monitoring of her respiratory status. Critical care services consulted for additional management/recommendations.
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
Impression:
#Fluid collection anterior medial to an enlarged left-sided submandibular gland, suspicious for abscess vs Porter's duct dilatation with supraglottic airway displacement and soft tissue edema with edematous thickening of epiglottis
#Leukocytosis
#Elevated serum bicarbonate level likely due to chronic metabolic alkalosis
#Transaminitis with elevated AST, ALT and ALP with normal T. bili
Plan:
Respiratory status stable overnight.
Maintaining airway
Not on oxygen supplementation
No stridor on exam.
- Continue broad spectrum Abx
- Consult oral maxillofacial surgery: Correspondence reviewed. Recommended antibiotics and warm compresses. ENT consultation.
- Aspiration precautions, keep head of bed elevated >30-45�
- Keep strict NPO for now until ENT evaluates patient, hopefully can advance later.
-
- If her secretions become difficult for her to handle and are watery, then would give a dose of glycopyrrolate
- If patient develops any worsening shortness of breath or develop stridor then she needs to be intubated immediately
-Status post steroids in the emergency room. No longer needed.
If okay with ENT, we will transfer to telemetry.
If transferred to telemetry critical care team will sign off. Call pulmonary if any respiratory issues arise
Data:
CT Neck with IV Contrast 11-19-2023:
There is 3.0 x 1.5 x 1.5 cm low-density fluid collection with enhancing wall in the left submandibular space anteromedial to the slightly enlarged left submandibular gland. I favor that this reflects dilatation of [place]'s duct suggesting distal
ductal obstruction, however, abscess is included in the differential diagnosis.
This lesion is associated with mass effect with effacement of the left oropharyngeal and hypopharyngeal airways and there is associated edema versus inflammatory change in the overlying soft tissues as well as edematous thickening of the epiglottis
to approximately 9 mm
Subjective Dataa
Subjective Data
Date of Service:
Date of Service: November 20, 2023
Chief Complaint: Hospital Secretary Follow Up (Submandibular mass-possible airway compromise)
Subjective:
No overnight events
Denies stridor
Denies shortness of breath.
Review of Systems
General: Fever (n)
Cardiopulmonary: Dyspnea (n) and Cough (n)
GI: Abdominal Pain (n) and Nausea (n)
Neuro: Headache (n)
Objective Data
Data Reviewed
Vital Signs / I&O / Oxygen:
Vital Signs
Temp Pulse Resp BP Pulse Ox
98.1 F 66 17 122/50 96
11/20/23 11:35 11/20/23 10:00 11/20/23 10:00 11/20/23 10:00 11/20/23 10:00
Intake and Output
11/19/23 11/20/23 11/21/23
06:59 06:59 06:59
Intake Total 580 / 620 270 / 270
Output Total 250 / 250 100 / 100
Balance 330 / 370 170 / 170
SaO2 96
Physical Exam
General: Respiratory Distress (n) and Comfortable
HEENT: Normocephalic and Other (No stridor on exam)
Cardiovascular: S1-S2
Respiratory: Non-Labored Respirations
GI: Soft and Non Distended
Neurology: Awake and Alert
Labs/Micro/Reports
Lab Data
11/20/23 05:41
11/20/23 05:41
Laboratory Results
11/19/23
18:19
PT 16.6 H
INR 1.36
APTT 42.1 H
Microbiology
11/19/23 12:51 Blood/Venous Blood Culture - Preliminary
No Growth in 24 hours- Final report to follow
11/19/23 12:51 Blood/Venous Blood Culture - Preliminary
No Growth in 24 hours- Final report to follow
--- NOTE | 2023-11-20 16:12 | PTCARENOTE ---
Pt assessed.No change in assessment noted.
[2023-11-20] MEDS: NOVOLOG FLEXPEN-LOW RESISTANCE 1 UNITS SC (16:42)
[2023-11-20 16:52] LABS: Glucose - Point of Care 152 mg/dl (70-99)
--- NOTE | 2023-11-20 17:19 | CON.MD ---
Addendum entered and electronically signed by Antonio Leong MD 11/20/23 17:29:
ok to advance diet as saran
Original Note:
Consultation - Medical
-
Neck swelling
83 yo presents with L submandibular swelling x few weeks
Has been on Amox x few days without improvement
Hx DM, afib
Had dental visit yesterday , no noted dental issues
CT shows swelling and fluid along duct in sublingual region, dilated duct vs abscess
On IV Piperacillin, received one dose of Decadron
In general, feeling somewhat better, no problem handling secretions
PE - Tender , swelling L submandibular gland
Some fullness floor of mouth, no palpable stone
Dental implants noted,seen by oral surgery
A/P L submandibular sialodenitis
CT scan reviewed, seems like dilated duct rather than abscess
After local anesthesia, sublingual area incised, no abscess
Would continue w IV antibx tonight, one additional dose of Decadron
IVF, warm compresses, hydration
If continues to improve, could d/c on po antibx such as Augmentin in a day or so
--- NOTE | 2023-11-20 17:38 | W.PN.UPDATE ---
Update Note
Progress Note Update
Pt has been stable, non stridor on exam.
ENT evaluation noted.
Will transfer to med surg.
CCT with sign off.
Please call pulmonary if any respiratory issues arise.
[2023-11-20] MEDS: LOVENOX 30 MG SC (18:07)
[2023-11-20] MEDS: DECADRON 6 MG IV (18:09)
--- NOTE | 2023-11-20 21:00 | PTCARENOTE ---
Received patient AAOx4, following commands, denying pain, moves all extremities. Warm compress provided for slight swelling of left jaw. Sinus bran/normal sinus 50s-60s with BBB. Normothermic, BP stable 90s-100s/50s-60s. +1 bilateral lower
extremity edema. 94% on room air, lung sounds clear, diminished at the bases. Last BM today, abdomen soft, round, nontender, positive bowel sounds. Skin intact. Right antecubital #20 patent, WNL. Call otero within reach.
[2023-11-20] MEDS: TOPROL XL 100 MG PO (22:05)
[2023-11-20] MEDS: ATIVAN 0.5 MG PO (22:06)
[2023-11-20 22:21] LABS: Glucose - Point of Care 153 mg/dl (70-99)
[2023-11-21] VITALS: BP 112/49
[2023-11-21] MEDS: ZOSYN 50 IV ×2 (01:07→08:50)
[2023-11-21] MEDS: MELATONIN 5 MG PO (01:07)
[2023-11-21 04:00] VITALS: BP 113/51
[2023-11-21 04:49] VITALS: BP 121/54
[2023-11-21] MEDS: CARDIZEM 90 MG PO ×2 (04:52→11:10)
[2023-11-21 04:53] VITALS: BMI 24.7
[2023-11-21 05:00] LABS: % Basophils 0.1 % (0-2); % Immature Granulocytes 0.6 % (0-0.5); % Lymphocytes 10.6 % (20.5-51.1); % Monocytes 3.4 % (1.7-9.3); % Neutrophils 85.3 % (42.2-75.2); Absolute Immature Granulocytes 0.1 10^3/uL (0-0.05); Absolute Lymphocytes 1.3 10^3/uL (1.2-3.4); Absolute Monocytes 0.4 10^3/uL (0.1-0.6); Absolute Neutrophils 10.7 10^3/uL (1.4-6.5); Hematocrit 36.7 % (37.0-47.0); Hemoglobin 12.7 g/dL (12.0-16.0); Mean Corp Hgb Conc. 34.6 g/dL (33.0-37.0); Mean Corpuscular Hgb 29.1 pg (27.0-31.0); Mean Platelet Volume 10.1 fL (7.4-10.4); Nucleated Red Blood Cells % 0 %; Platelet Count 235 10^3/uL (130-400); Red Blood Cell Count 4.37 10^6/uL (4.20-5.40); Red Cell Dist. Width 14.1 % (11.5-14.5); White Blood Cell Count 12.6 10^3/uL (4.8-10.8)
[2023-11-21 05:19] LABS: ALT (SGPT) 263 U/L (0-35); AST (SGOT) 109 U/L (14-36); Albumin 3.6 g/dl (3.5-5.0); Alkaline Phosphatase 261 U/L (38-126); Blood Urea Nitrogen 37 mg/dl (7-17); Calcium 9.3 mg/dl (8.4-10.2); Carbon Dioxide 27 mmol/L (22-30); Chloride 101 mmol/L (98-107); Estimated Creatinine Clearance 33 ml/min; Glucose 151 mg/dl (70-99); Magnesium 2.3 mg/dl (1.6-2.3); Potassium 3.9 mmol/L (3.5-5.1); Sodium 138 mmol/L (135-145); Total Protein 7.4 g/dl (6.3-8.2); eGFR > 60.00
[2023-11-21 07:34] LABS: Glucose - Point of Care 149 mg/dl (70-99)
--- NOTE | 2023-11-21 07:48 | W.PN.HOSP.TC ---
Addendum entered and electronically signed by Eva Salas MD 11/21/23 14:38:
total DC time 36 min
Original Note:
Today's Communication/Plan
-
DC home today
Assessment / Plan
Assessment / Plan
HPI: 83-year-old female with past medical history of atrial fibrillation on anticoagulation with Eliquis, diabetes, GERD, presented with worsening pain and swelling on the lower left side of her mouth and throat.
She has been having swelling and pain in her left lower jaw for a couple of weeks. She has been on amoxil for a few days. She is now barely able to swallow due to the pain. She reported a prior episode about 3 years ago with spontaneous resolution.
On exam she has alteration in her voice and is spitting up secretions. No stridor. The floor of her mouth appears a bit elevated and is tender. She has some swelling an induration of the left submandibular region.
In the ED she had a low-grade temp of 99.9, she was hemodynamically stable, ECG was normal sinus rhythm with a rate of 74 and right bundle unchanged from prior. A CT soft tissue of the neck showed a 3 x 1.5 x 1.5 collection in the left submandibular
region with a mass effect affecting the left oropharyngeal and hypopharyngeal regions. Differential includes abscess versus ductal abnormality. She had leukocytosis to 15,000. CBC otherwise unremarkable. Chemistries within normal limits. She has
elevations in AST as well as ALT.
CT neck:
There is 3.0 x 1.5 x 1.5 cm low-density fluid collection with enhancing wall in the left submandibular space anteromedial to the slightly enlarged left submandibular gland. I favor that this reflects dilatation of Cairo's duct suggesting distal
ductal obstruction, however, abscess is included in the differential diagnosis.
This lesion is associated with mass effect with effacement of the left oropharyngeal and hypopharyngeal airways and there is associated edema versus inflammatory change in the overlying soft tissues as well as edematous thickening of the epiglottis
to approximately 9 mm
A/P:
# Sepsis POA due to L submandibular sialodenitis
failure of outpatient abx.
ENT on board, s/p sublingual area incision, no abscess noted
Recc to continue IV abx for now, given additional dose of Decadron, cont warm compresses, hydration
Plan to DC on oral abx Augmentin (plan for 10 days total with probiotic)
For now, continue zosyn 3.375 q 6 hours
diet advanced to regular and pt tolerated well
# paroxysmal AFIB
continue rate control with metoprolol 100 hs and Cardizem 360 mg daily
resume apixaban today after DC
# Chronic diastolic heart failure- stable.
resume Lasix after DC
resume Jardiance after DC
# Transaminitis, unclear etiology, possibly reactive, improving
Follow hepatitis panel
Abd US noted questionable pneumobilia within the intrahepatic bile ducts. Can repeat Abd US outpt in 4 weeks with PCP
trend LFT
DVT PPX - lovenox sq while holding apixaban
Full Code
left VM to daughter
Anticipated Discharge: Today
Subjective/Interval History
-
Date of Service: November 21, 2023
Objective Data
-
Labs:
Laboratory Results
11/21/23
04:45
WBC 12.6 H
Hgb 12.7
Hct 36.7 L
Plt Count 235
Sodium 138
Potassium 3.9
Chloride 101
Carbon Dioxide 27
BUN 37 H
Creatinine 0.9
Glucose 151 H
Calcium 9.3
Total Bilirubin 1.0
AST 109 H
ALT 263 H
Alkaline Phosphatase 261 H
Vital Signs:
Vital Signs
Temp Pulse Resp BP Pulse Ox
36.8 C 49 22 121/54 94
11/21/23 04:48 11/21/23 06:00 11/21/23 06:00 11/21/23 04:52 11/20/23 20:49
I&O
11/20/23 11/21/23 11/22/23
06:59 06:59 06:59
Intake Total 580 / 620 1140 / 1140
Output Total 250 / 250 600 / 600
Balance 330 / 370 540 / 540
Review of Systems
-
EENT: Reports Other (L mandibular swelling and pain, improved)
Physical Exam
-
General: Well Developed, Well Nourished, No Apparent Distress, Comfortable and Conversant
HEENT: Normocephalic, Atraumatic and Moist Mucous Membranes
Respiratory: Clear to Auscultation and Non Labored Respirations; Negative Wheezes, Rales or Accessory Resp Muscle Use
Cardiac: Regular Rhythm and S1/S2
GI: Soft, Nontender and Nondistended
Musculoskeletal: No Clubbing, No Cyanosis and No Edema
Neuro: Awake and Alert
Psych: Calm and Intact Judgement/Insight
Data Reviewed
-
CT Scan: Image personally visualized and interpreted and Report Reviewed by me
Labs: Labs Reviewed by me
--- NOTE | 2023-11-21 08:07 | W.PN.UPDATE ---
Update Note
Progress Note Update
Pt feeling better
Tolerating po
afebrile
Sl soreness of L submandibular gland
Less cellulitis in neck
OC - decreased edema floor of mouth
A/P Submandibular sialodenitis
Improving
could d/c on po Augmentin 875 bid x 7-10 days
Follow up ENT as outpt
[2023-11-21] MEDS: NOVOLOG FLEXPEN-LOW RESISTANCE SC (08:47)
[2023-11-21] MEDS: PROTONIX IV 40 MG IV (08:51)
--- NOTE | 2023-11-21 09:26 | CM ---
CM following re: discharge planning.
Reviewed pt's chart, met with pt and pt's daughter Jie at bedside.
Discharge order noted. Both pt and her daughter are aware, expressed their agreement with discharge. IMM reviewed, placed on chart, pt has a copy.
Pt reports she lives alone and has 2 cats, has 2 supportive living daughters, 4 other children . Emotional; support offered and provided.
Both pt and her daughter are aware that [facility] will resume [facility] services upon the discharge. Daughter Jie stated that pt's other daughter will transport pt home.
Please fax discharge instructions to [facility] at [phone]
D/C plan: home with VN and family support. Daughter to transport.
No other discharge needs identified.
[2023-11-21 10:11] VITALS: BP 123/46
[2023-11-21 10:20] VITALS: BP 123/46
[2023-11-21 10:35] VITALS: BP 123/46
[2023-11-21] MEDS: TYLENOL 650 MG PO (11:10)
--- NOTE | 2023-11-21 11:24 | PTCARENOTE ---
patient d/c at 11:25; Transfer to home provided by patient's daughter. RT AC peripheral line removed, 2x2 applied. All d/c instruction including script for LFT to be collected after a week of d/c administer to patient and her daughter. Script for
Amoxicillin send to [facility] pharmacy electronically with 1st dose to be administer tonight. VSS. Patient and her daughter confirmed full understanding of all d/c instructions.
--- NOTE | 2023-11-21 11:25 | PTOTSP ---
pt currently demonstrates ability to complete simple ADLs, functional transfers, ambulation with supervision asisstance. daughters present for session, reports will provide assistance as needed at d/c. no acute OT needs identified at this time, will
sign off.
--- NOTE | 2023-11-21 11:31 | VNURNOTE ---
[facility] resumption of care completed in [facility] after review of chart.
[2023-11-21 11:55] LABS: Hepatitis B Surface Antigen Negative (Negative)
[2023-11-21 12:12] LABS: Hepatitis B Surface Antibody Negative; Hepatitis C Antibody Negative (Negative)
--- NOTE | 2023-11-21 14:20 | W.DCSUMMARY ---
Discharge Summary
Discharge Data
Date of Admission: 11/19/23
Date of Discharge: 11/21/23
-
Pending Results: No
Hospital Course
Principal Diagnosis:
Sepsis due to Left submandibular sialoadenitis
Transaminitis, possibly reactive, improved
Chronic Diagnoses:�
Paroxysmal atrial fibrillation
Chronic diastolic heart failure- stable.
Gastroesophageal reflux disease
Hvi-yiavqdt-ierqrulwc diabetes
Consultations:�
Oral maxillofacial surgeon
ENT
Trolley Car Overhauler
Procedures:�
Sublingual area incision by ENT
Clinical course:�
This is a 83-year-old female with past medical history as stated above, who presented with pain and swelling at her left jaw. She was started with amoxil without significant improvement.
Problem 1:
Sepsis on admission due to Left submandibular sialoadenitis.
She received IV Zosyn during her hospital stay, and one-time dose of IV Decadron in the ER from admission.
Patient was seen by both oral maxillofacial surgeon and ENT.
She underwent bedside sublingual area incision by ENT, and no abscess was noted.
She was given an additional dose of IV Decadron per ENT.
Per ENT, she can continue with warm compress and oral antibiotic at the time of discharge.
Patient was prescribed Augmentin to continue for 10 more days with probiotic following discharge.
She was able to tolerate a regular diet prior to discharge.
Problem 2:
Transaminitis, possibly reactive, improved during hospital stay.
Her AST improved from 400 to 109; her ALT improved from 500 to 260.
Her hepatitis panel results were not available at the time of discharge, the patient can follow up these results with her PCP outpatient.
Her Abd US noted questionable pneumobilia within the intrahepatic bile ducts. She can also check a repeat abdominal ultrasound with her PCP in 4 weeks.
She was provided a prescription to check her LFT within 1 week with result to her PCP outpatient.
As for the rest of her medical problems, they were stable during her hospital stay.
Discharge Plan
-
Patient Disposition: Home with Home Care
Discharge Diagnosis/Procedures: Left submandibular sialodenitis; Elevated liver enzymes (unclear etiology, possibly reactive, improving); Possible pneumobilia noted on Abdominal Ultrasound
Condition: Fair
Diet: As tolerated, Low Fat, Low Cholesterol and Low Sodium
Activity: As tolerated
Driving Restrictions: As prior to admission
Blood Work: LFT with your PCP in 1 week
Others Tests: Abdominal ultrasound with your PCP in 4 weeks to evaluate the possible pneumobilia
Activity Restrictions/Additional Instructions:
Follow hepatitis panel results outpatient with your PCP
Referrals:
Vicente Banerjee MD [Family Provider] - in less than 1 week
Additional Discharge Medication Instructions: Continue Augmentin for 10 days (take with probiotic)
Prescriptions:
Continued
rabeprazole 20 mg tablet,delayed release (DR/EC)
20 mg PO QPM
lorazepam 0.5 mg Tablet
0.5 mg PO QIDPRN PRN (Reason: anxiety)
hydrocodone-acetaminophen 7.5-325 mg tablet
1 tab PO Q6HPRN PRN (Reason: moderate pain)
diltiazem HCl 180 mg Capsule,Extended Release 24hr
360 mg PO DAILY Qty: 30 0RF
Eliquis 2.5 mg Tablet
2.5 mg PO BID Qty: 60 0RF
Jardiance 10 mg Tablet
10 mg PO DAILY Qty: 30 0RF
furosemide 40 mg Tablet
40 mg PO DAILY Qty: 30 0RF
polyethylene glycol 3350 [HealthyLax] 17 gram Powder In Packet
17 g PO DAILYPRN PRN (Reason: constipation) Qty: 0 0RF
metoprolol succinate 100 mg tablet extended release 24 hr
100 mg PO HS
amoxicillin-pot clavulanate 875-125 mg Tablet
1 tab PO BID 10 Days Qty: 20 0RF
Visbiome 112.5 billion cell Capsule
1 cap PO DAILY 15 Days Qty: 15 0RF
Held
atorvastatin [Lipitor] 20 mg Tablet
20 mg PO QPM Qty: 0
Hold Instructions: Resume on 11/29/23. until outpatient LFT result
Discharge Orders:
Discharge Patient (As Directed); Ordered 11/21/23
Ordered By: Eva Salas
Discharge Date and Time
Discharge Date/Time: 11/21/23 11:20
Print Language: ITALIAN
[2023-11-21 18:13] LABS: Hepatitis B Core Ab, IgM Negative (Negative)
[2023-11-21 18:55] LABS: Hepatitis A IgM Antibody Negative (Negative)
== END 2023-11-21 11:20 | disposition home health service (06) | DRG 872 ==
LOC: ICU 16:23
PROVIDERS: ADMITTING PHYSICIAN Internal Medicine; ATTENDING PHYSICIAN Internal Medicine; CONSULT PHYSICIAN Dentist Oral and Maxillofacial Surgery; CONSULT PHYSICIAN Otolaryngology; EMERGENCY PHYSICIAN Emergency Medicine; FAMILY PHYSICIAN Family Medicine; OTHER PHYSICIAN Internal Medicine Critical Care Medicine
DX: A41.9 Sepsis, unspecified organism (principal); K12.2 Cellulitis and abscess of mouth; I48.21 Permanent atrial fibrillation; I50.32 Chronic diastolic (congestive) heart failure; E87.3 Alkalosis; I11.0 Hypertensive heart disease with heart failure; E11.9 Type 2 diabetes mellitus without complications; Z79.84 Long term (current) use of oral hypoglycemic drugs; K21.9 Gastro-esophageal reflux disease without esophagitis
CPT/HCPCS: 70491; 71045; 76700; 80053; 82248; 82962; 83605; 83735; 85025; 85027; 85610; 85730; 86705; 86706; 86709; 86803; 87040; 87340; 93005; 96365; 96375; 97161; 97165; 99285; Q9967

== ENCOUNTER → 2024-05-02 11:00 | Outpatient (REF) | payer MEDICARE, OTHER, SELFPAY | LOC: DHCBC/DCA 11:00 | PROVIDERS: ATTENDING PHYSICIAN Internal Medicine Cardiovascular Disease; FAMILY PHYSICIAN Family Medicine | DX: I50.32 Chronic diastolic (congestive) heart failure (principal); Z01.818 Encounter for other preprocedural examination | CPT/HCPCS: 78452; 93017; A9500; J2785 ==

== ENCOUNTER 2024-05-16 12:59 | Inpatient (IN) | payer MEDICARE, OTHER, SELFPAY ==
[2024-04-17 11:08] VITALS: BMI 28.1
[2024-04-17 11:27] LABS: Hematocrit 35.6 % (37.0-47.0); Hemoglobin 11.6 g/dL (12.0-16.0); Mean Corp Hgb Conc. 32.6 g/dL (33.0-37.0); Mean Corpuscular Volume 85.8 fL (81.0-99.0); Mean Platelet Volume 10.7 fL (7.4-10.4); Platelet Count 242 10^3/uL (130-400); Red Blood Cell Count 4.15 10^6/uL (4.20-5.40); Red Cell Dist. Width 13.5 % (11.5-14.5); White Blood Cell Count 13.2 10^3/uL (4.8-10.8)
[2024-04-17 12:16] LABS: ALT (SGPT) 20 U/L (0-35); AST (SGOT) 30 U/L (14-36); Albumin 4.2 g/dl (3.5-5.0); Alkaline Phosphatase 98 U/L (38-126); Blood Urea Nitrogen 26 mg/dl (7-17); Calcium 9.8 mg/dl (8.4-10.2); Carbon Dioxide 29 mmol/L (22-30); Chloride 98 mmol/L (98-107); Estimated Creatinine Clearance 32 ml/min; Glucose 91 mg/dl (70-99); Potassium 4.8 mmol/L (3.5-5.1); Sodium 140 mmol/L (135-145); Total Bilirubin 0.6 mg/dl (0.2-1.3); Total Protein 7.6 g/dl (6.3-8.2); eGFR > 60.00
[2024-04-17 12:58] LABS: Glycohemoglobin (HgbA1c) 6.1 % (4.0-5.6)
[2024-05-10 13:36] VITALS: BMI 28.1
--- NOTE | 2024-05-10 13:37 | PTCARENOTE ---
Spoke to pt's daughter, Carissa. They were not able to keep call appt time because she had to repeat her blood work today. They have not reviewed folder or watch video at this point, encouraged to do so TED. She received her mupirocin ointment, but
was not aware what it was for. Will purchase chlorhexidine. Both instructions reviewed at length. She is aware she will need outpt PT set up for 05/20. Carissa stated she was under the impression everything would be done at her mother's home (she lives
alone). She is aware that she needs to call Dr. Alex's office now to clarify and to make sure outpt PT is set up.
[2024-05-16] VITALS (10 sets, daily range): BP systolic 106–144; BP diastolic 50–115; BMI 28.1
[2024-05-16 13:13] LABS: Glucose - Point of Care 89 mg/dl (70-99)
[2024-05-16] MEDS: CELEBREX 200 MG PO (13:34)
[2024-05-16] MEDS: TYLENOL 650 MG PO (13:34)
--- NOTE | 2024-05-16 13:46 | W.PN.UPDATE ---
Update Note
Progress Note Update
R TKA Dr. Alex 05/16/24
DVT ppx-Eliquis
XSE-znnf-Yizcfbgok + BB+E;iquis dose adjusted due to age criteria/Scr clear
HFpEF
-decrease IVF rate-monitor volume status
NIDDM-A1C 6.1-controlled-+ Novolog SSI and standing coverage
IBS-D-prn Senna w/ Colace
Insomnia
Anxiety/depression
-resume meds
GERD-GI ppx
Narc dependence-adjust pain regimen and monitor
--- NOTE | 2024-05-16 13:54 | W.DS.TRANS ---
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
-
Discharge Instructions:
Sleep Apnea Risk Low
Discharge Diagnosis/Procedures R TKA Dr. Alex 05/16/24
Diet Diabetic, Carb Controlled
Activity With Walker
Driving Restrictions No driving
Bathing Restrictions OK to Shower
Other Services PT
Instructions:
Stand-Alone Forms: Total Hip/Knee Replacement D/C
Changes to Home Medications: Yes
Discharge Medications:
DC Medications w/original date entered in [employer]
hydrocodone 7.5 mg-acetaminophen 325 mg tablet 1 tab PO QID 11/08/22
lorazepam 0.5 mg tablet 0.5 mg PO QID 11/08/22
atorvastatin 20 mg tablet (Lipitor) 20 mg PO HS High Cholesterol ##0 10/08/23
apixaban 2.5 mg tablet (Eliquis) 2.5 mg PO BID #60 tabs 10/11/23
empagliflozin 10 mg tablet (Jardiance) 10 mg PO DAILY #30 tabs 10/11/23
furosemide 40 mg tablet 40 mg PO DAILY #30 tabs 10/11/23
polyethylene glycol 3350 17 gram oral powder packet (HealthyLax) 17 g PO DAILYPRN PRN constipation #0 ea 10/11/23
metoprolol succinate 100 mg tablet,extended release 24 hr 100 mg PO HS Heart Disease/Condition 11/19/23
amlodipine 5 mg tablet 5 mg PO DAILY 05/10/24
apple cider vinegar 1 tab PO BID 05/10/24
calcium carbonate 500 mg PO DAILY 05/10/24
cholecalciferol (vitamin D3) 25 mcg (1,000 unit) tablet (Vitamin D3) 25 mcg PO DAILY 05/10/24
diltiazem HCl 180 mg capsule,extended release 24 hr 180 mg PO DAILY 05/10/24
lactobacillus combination no.4 3 billion cell capsule (Probiotic) 3,000 mmu cells PO DAILY 05/10/24
magnesium 250 mg tablet 250 mg PO HS 05/10/24
multivitamin 1 tab PO DAILY 05/10/24
mupirocin 2 % topical ointment 1 applic topical BID 05/10/24
omeprazole 20 mg tablet,delayed release 20 mg PO DAILY 05/10/24
trazodone 50 mg tablet 50 mg PO HS 05/10/24
Saccharomyces boulardii 250 mg capsule (Florastor) 250 mg PO BID #1 cap 05/16/24
cefadroxil 500 mg capsule 500 mg PO BID infection prevention #14 caps 05/16/24
docusate sodium 100 mg capsule (Colace) 100 mg PO BID stool softner #1 cap 05/16/24
magnesium hydroxide 400 mg/5 mL oral suspension (Milk of Magnesia) 30 ml PO HS PRN Constipation #1 mL 05/16/24
ondansetron 4 mg disintegrating tablet 4 mg PO Q6H PRN n/v #20 tabs 05/16/24
oxycodone 5 mg tablet 5 mg PO Q6H PRN 1 tab moderate pain, 2 tabs severe pain #30 tabs 05/16/24
Home Medication Changes
mupirocin 2 % topical ointment 1 applic topical BID 05/10/24
omeprazole 20 mg tablet,delayed release 20 mg PO DAILY 05/10/24
trazodone 50 mg tablet 50 mg PO HS 05/10/24
Saccharomyces boulardii 250 mg capsule (Florastor) 250 mg PO BID #1 cap 05/16/24
cefadroxil 500 mg capsule 500 mg PO BID infection prevention #14 caps 05/16/24
docusate sodium 100 mg capsule (Colace) 100 mg PO BID stool softner #1 cap 05/16/24
magnesium hydroxide 400 mg/5 mL oral suspension (Milk of Magnesia) 30 ml PO HS PRN Constipation #1 mL 05/16/24
ondansetron 4 mg disintegrating tablet 4 mg PO Q6H PRN n/v #20 tabs 05/16/24
oxycodone 5 mg tablet 5 mg PO Q6H PRN 1 tab moderate pain, 2 tabs severe pain #30 tabs 05/16/24
Pending Results: No
[2024-05-16 16:48] LABS: Glucose - Point of Care 115 mg/dl (70-99)
[2024-05-16 17:58] LABS: Glucose - Point of Care 115 mg/dl (70-99)
--- NOTE | 2024-05-16 18:01 | PTCARENOTE ---
Received patient from PACU around 1740 via bed in stable condition. Patient denied pain. Right knee dressing C/D/I. + movement +sensation. Tele applied. Call otero in reach.
[2024-05-16] MEDS: CARDIZEM CD 180 MG PO (18:18)
[2024-05-16] MEDS: NORCO 7.5/325 1 TABLET PO ×2 (18:18→22:57)
[2024-05-16] MEDS: NOVOLOG FLEXPEN SC (18:21)
[2024-05-16] MEDS: NORMOSOL-R/PLASMALYTE-A 1000 IV (18:31)
[2024-05-16] MEDS: ATIVAN PO (18:37)
--- NOTE | 2024-05-16 19:29 | OR.RPT ---
Operative Report
Operative Report
Orthopaedic Surgery Operative Note
DATE OF OPERATION: 05/16/2024
PREOPERATIVE DIAGNOSES: Osteoarthritis, right knee.
POSTOPERATIVE DIAGNOSES: Osteoarthritis, right knee.
OPERATION PERFORMED:
1) Right total knee arthroplasty (CPT 20304)
2) Intraosseous administration of analgesic (CPT 36223)
SURGEON: Gerhard Alex MD
ASSISTANTS: Johnnie Villa PA-C who helped with patient and limb positioning and retraction
ANESTHESIA: Spinal by anesthesia plus intraoperative infusion of morphine into the tibial metaphysis by Dr. Alex
COMPLICATIONS: None.
ESTIMATED BLOOD LOSS: 20mL
DRAINS: None
TOURNIQUET TIME: 36 minutes.
IMPLANTS:
- Conner Persona PS Femur, size 4
- Conner Persona tibia base plate, size C
- Conner Persona CPS articular surface, 10 mm
- DJO [place] bone cement
INDICATIONS: The patient presented to my office with debilitating right knee pain due to osteoarthritis. We reviewed the natural history of this problem, as well as the risks, benefits, and alternatives of various treatment options. The patient
exhausted all nonoperative treatment options and wished to proceed with knee replacement surgery. The patient understood the risks which included, but were not limited to, bleeding, infection, failure to relieve pain, more pain than preop, damage to
blood vessels and nerves, need for reoperation, mechanical failure of the implants, wound healing problems, stiffness, instability, blood clot, pulmonary embolism, myocardial infarction, pneumonia, arrhythmia, CVA, and . The patient accepted
these risks and wished to proceed. All questions were answered, and informed consent was obtained.
PROCEDURE IN DETAIL: The patient was identified in the preoperative holding area. The right knee was identified as the operative site. The patient was taken in the operating room and placed in a supine position on the operating table. Spinal
anesthesia was performed. IV antibiotics and tranexamic acid were administered. An SCD was placed on the left lower extremity. A well-padded tourniquet was placed on the proximal thigh. All bony prominences were well padded. The right lower
extremity was prepped and draped in the usual sterile fashion.
We performed a surgical time-out. An interarticular block was performed with local anesthetic with epinephrine. The limb was exsanguinated with an Esmarch bandage, then the tourniquet was inflated to 250 mmHg. I performed interosseous administration
of morphine-saline solution via a Jamshidi style intraosseous needle into the proximal medial tibial metaphysis as described by Buddy Manning MD. This was performed to aid in pain control. A midline skin incision was made followed by a medial
parapatellar arthrotomy. A subperiosteal peel was performed on the medial tibia. I excised part of the infrapatellar fat pad to improve our visualization as well as tissue over anterior femur. The patella was everted and the knee was flexed. I
excised the remnants of the anterior and posterior cruciate ligaments as well as tibial and femoral osteophytes with rongeurs.
The knee was flexed, and the extramedullary tibial cutting guide was aligned. Bullitt was aligned at neutral, rotation was centered on the tibial tubercle, and coronal alignment was aligned with the mechanical axis of the tibia and center of the ankle
joint. The cut height was 10mm off the lateral tibia joint surface. The guide was secured into place. The MCL and LCL were protected. The tibia surface was cut. The cut surface was inspected after removal to ensure appropriate height and slope based
on the preoperative plan. The cut was checked with a drop saulo. It was centered nicely at the ankle.
A drill was used to open the femoral canal. The intramedullary distal femoral cutting guide was inserted into the femur. This was set at 5 degrees +0. This was secured into place with three pins. The cut level was checked with an brenda wing. The
distal femur was cut through the cutting guide. The IM guide was reinserted to double check that the level of resection was flush and in appropriate alignment.
Coke�s line and the transepicondylar axis were marked on the femur. The femoral sizing guide was applied to the anterior femur. Pins were inserted, and the 4-in-1 cutting guide was applied and secured into place. The rotation was compared to
Coke�s line, the transepicondylar axis, and the neutral tibia cut and was found to be appropriate. The width was checked and found to be appropriate and lateralized on the femur. The anterior, posterior, and chamfur cuts were made. A lamina
microsoft architect was used to open the flexion gap, and posterior osteophytes were removed with a curved osteotome. The remnant medial and lateral meniscus were also removed. I prophylactically cauterized the lateral geniculate arteries. A 10mm spacer block
was applied to the flexion gap and was noted to be balanced medially and laterally. The knee was extended, and the block showed symmetric to extension and flexion gaps.
The tibia was exposed and sized. Rotation was set in line with the tibial tubercle and congruent with the femur. The trial was secured into place with two pins. The trial femur was impacted into place, and the box was prepared for CPS per
preoperative plan. A trial articular surface was placed. The knee was taken through range of motion and noted to be stable throughout the arc of motion without gaping or excess tension. The patella tracked centrally throughout the arc of motion
without need for further releases. No full thickness cartilage defects.
The trials were removed. The tibia keel was prepared with the punch and the drill. The bone surfaces were irrigated with sterile saline and dried. The cement was mixed in a vacuum mixer. Cement gun was used to apply cement to the tibial surface and
the undersurface of the tibial implant. Cement was pressurized into the tibial canal and tibia surface. The tibial component was impacted into place. Excess cement was removed. Cement was applied to the femoral surface and the femoral component. The
femoral component was impacted into place, and excess cement removed. A trial articular surface was inserted, and the knee was extended while the cement polymerized. The tourniquet was let down, and meticulous hemostasis was achieved. Dilute
betadine was poured into the wound and allowed to soak for 3 minutes. The knee was irrigated with copious normal saline.
Once the cement was polymerized, the trial articular surface was removed. Any excess cement was removed. The knee was trialed, and the final articular surface was selected and inserted into the tibial locking mechanism. The knee was reduced. A fresh
drape was applied to the surgical field.
The arthrotomy was closed with 0-PDS. Once closed, an interarticular block was performed with local anesthetic with epi. The deep dermal layer was closed with 2-0 PDS, and the subcuticular skin was closed with 3-0 monocryl. A Dermabond Prineo
dressing was applied to the skin in full flexion. Once this was completely dry, a sterile waterproof dressing was applied.
The anesthesia team performed an adductor canal block in the OR. The patient awoke from anesthesia without any difficulties. The sponge and instrument counts were correct x2 at the end of the case.
Antonio Alex MD
[2024-05-16] MEDS: COLACE 100 MG PO (20:06)
[2024-05-16] MEDS: ELIQUIS 2.5 MG PO (20:06)
[2024-05-16] MEDS: MAALOX 30 ML PO (20:06)
[2024-05-16] MEDS: BACTROBAN 2% OINTMENT 1 APPLIC NASAL (20:06)
[2024-05-16 21:48] LABS: Glucose - Point of Care 243 mg/dl (70-99)
[2024-05-16] MEDS: DESYREL 50 MG PO (22:57)
[2024-05-16] MEDS: PROTONIX 40 MG PO (22:57)
[2024-05-16] MEDS: ANCEF 5 IV (22:57)
[2024-05-16] MEDS: LIPITOR 20 MG PO (22:57)
[2024-05-16] MEDS: ATIVAN 0.5 MG PO (22:57)
[2024-05-16] MEDS: MAG-TAB SR 84 MG PO (22:57)
[2024-05-16] MEDS: TOPROL XL 100 MG PO (23:33)
[2024-05-17 03:25] VITALS: BP 113/59
[2024-05-17] MEDS: NORCO 7.5/325 1 TABLET PO ×4 (04:31→15:49)
[2024-05-17] MEDS: ANCEF 5 IV (06:18)
[2024-05-17 07:05] VITALS: BP 119/59
[2024-05-17 08:21] LABS: Glucose - Point of Care 135 mg/dl (70-99)
--- NOTE | 2024-05-17 08:33 | VNURNOTE ---
Chart reviewed. Patient is current with [facility] nursing, PT, OT. Will continue to follow hospital course and DC plans.
[2024-05-17] MEDS: BACTROBAN 2% OINTMENT 1 APPLIC NASAL (09:10)
[2024-05-17] MEDS: COLACE 100 MG PO (09:11)
[2024-05-17] MEDS: ELIQUIS 2.5 MG PO (09:11)
[2024-05-17] MEDS: ATIVAN 0.5 MG PO ×2 (09:11→15:50)
[2024-05-17] MEDS: FARXIGA 10 MG PO (09:11)
[2024-05-17] MEDS: VISBIOME 1 CAP PO (09:11)
[2024-05-17] MEDS: LASIX 20 MG PO (09:11)
[2024-05-17] MEDS: CARDIZEM CD 180 MG PO (09:12)
[2024-05-17] MEDS: NOVOLOG FLEXPEN 2 UNITS SC (09:15)
[2024-05-17 10:00] VITALS: BMI 24.7
[2024-05-17 10:35] VITALS: BP 145/62; PULSE 69; O2SAT 98
--- NOTE | 2024-05-17 10:39 | W.PN.ORTHO ---
Today's Communication / Plan
-
d/c
Assessment
.
Distal Motor Intact: Yes
Dressing:
Clean, dry and intact.
Assessment:
DVT ppx-Eliquis
PAF--Diltiazem + BB+Eiquis dose adjusted due to age criteria/Scr clear-stable on tele
HFpEF
-decrease IVF rate-volume status stable
NIDDM-A1C 6.1-controlled-+ Novolog SSI and standing coverage-sugars well controlled
IBS-D-prn Senna w/ Colace
Insomnia
Anxiety/depression
-resume meds
GERD-GI ppx
Narc dependence-adjust pain regimen and monitor-pain well controlled
Plan
.
Surgery / Date: R TKA Dr. Alex 05/16/24
DVT Prophylaxis: Other (Eliquis 2.5mg bid)
Activity:
Out of bed.
PT/OT
Discharge Plan: Home w/ VN
Subjective
.
.:
Patient resting comfortably.
Vital Signs and Labs
.
Vital Signs and Labs:
Lab Results
04/17/24 10:49
04/17/24 10:49
Temp Pulse Resp BP Pulse Ox
98.2 F 68 16 119/59 93
05/17/24 07:05 05/17/24 07:05 05/17/24 07:05 05/17/24 07:05 05/17/24 07:05
Non-invasive Hgb result: 13.9
Physical Exam
-
HEENT: No pallor, cyanosis, or jaundice. Throat clear.
NECK: Supple. No JVD.
RESPIRATORY: Lungs clear to auscultation.
CVS: S1, S2 normal. RRR.� No murmur, rub or gallop.
ABDOMEN: Soft, non-tender. No distension. BS+/normal.
EXTREMITIES: strength equal, no calf pain with palpation
LICENSED SURVEYOR: AOx3. No focal deficits. circular stuffer grossly intact
[2024-05-17 11:10] VITALS: BP 125/63
--- NOTE | 2024-05-17 11:31 | CM ---
Addendum entered by Natalya Paniagua 05/17/24 12:37:
Script provided to physical therapy as requested, home today, daughter to transport.
Original Note:
manager digital reviewed patient's chart and met with patient and daughterJie at bedside, patients youngest daughter will stay with patient after discharge. Patient lives alone in a split level home patient is independent with adl's and uses a
rollator with ambulation. Patient remains on one level of home, no steps to maneuver per daughter. Patient to return to home with VN, for visiting nurse, PT/OT and an aide. Patient is aware and agreeable to plan.
PCP: Dr Banerjee
Pharmacy: [facility]
Plan; Home with daughter and [facility]
[2024-05-17 12:55] VITALS: BP 145/73; PULSE 63; O2SAT 95
[2024-05-17 12:55] LABS: Glucose - Point of Care 107 mg/dl (70-99)
[2024-05-17] MEDS: NOVOLOG FLEXPEN SC ×2 (13:37→17:33)
[2024-05-17 15:20] VITALS: BP 109/79
[2024-05-17 17:00] LABS: Glucose - Point of Care 138 mg/dl (70-99)
== END 2024-05-17 18:00 | disposition home health service (06) | DRG 470 ==
LOC: 2 SOUTH 12:59
PROVIDERS: ADMITTING PHYSICIAN Orthopaedic Surgery; FAMILY PHYSICIAN Family Medicine; REFERRING PHYSICIAN Internal Medicine Cardiovascular Disease
PROC: 0SRC0J9 Replacement of Right Knee Joint with Synthetic Substitute, Cemented, Open Approach (ICD-10-PCS; 2024-05-16)
DX: M17.11 Unilateral primary osteoarthritis, right knee (principal); F11.20 Opioid dependence, uncomplicated; I50.32 Chronic diastolic (congestive) heart failure; I48.0 Paroxysmal atrial fibrillation; E11.9 Type 2 diabetes mellitus without complications; K58.0 Irritable bowel syndrome with diarrhea; G47.00 Insomnia, unspecified; F41.9 Anxiety disorder, unspecified; F32.A Depression, unspecified; K21.9 Gastro-esophageal reflux disease without esophagitis; Z60.2 Problems related to living alone; Z79.84 Long term (current) use of oral hypoglycemic drugs; Z79.01 Long term (current) use of anticoagulants
CPT/HCPCS: 36415; 73560; 80053; 82962; 83036; 85027; 86850; 86900; 86901; 87070; 97110; 97116; 97162; 97167; 97530; 97535

== ENCOUNTER 2024-06-03 11:55 | Emergency (ER) | payer MEDICARE, OTHER, SELFPAY ==
[2024-06-03 11:59] VITALS: BP 148/59
--- NOTE | 2024-06-03 12:17 | ED.GENMED ---
History of Present Illness
General
Chief Complaint: Musculo-Skeletal Complaint
Time Seen by Provider: 06/03/24 12:16
History of Present Illness
History of Present Illness:
TIME OF INITIAL ENCOUNTER: 12:20 PM
HPI: The patient has been getting physical therapy after right knee replacement. She has been doing a lot of upper extremity working out. She is notified one of the therapists who encouraged her to come to the ER for further evaluation. She is
not having any chest pain.
EXAM:
GENERAL: Well appearing in no distress
HEENT: Moist oral mucosa
CARDIOVASCULAR: No murmurs, normal heart rate, regular rhythm, No chest wall tenderness
PULMONARY: No respiratory distress, breath sounds are clear and equal
ABDOMEN: Soft with no peritoneal signs, no tenderness
NEUROLOGIC: Good strength all extremities, no coordination deficits
PSYCHIATRIC: Appropriate mental status, normal insight and judgement
EXTREMITIES: Nontender, no edema, moves all extremities equally, no significant tenderness at the left upper extremity, negative empty can test, strong radial pulse
SKIN: No rash, no lesions
NUMBER AND COMPLEXITY OF PROBLEMS ADDRESSED AT THE ENCOUNTER
� Chronic conditions affecting care: A-fib, CHF, high blood pressure
� Acute Exacerbation and/or Progression of Chronic Illness: This is an acute problem
� Differential Diagnosis includes: Musculoskeletal etiology, muscle strain, tendinitis, bursitis overuse injury, doubt ACS
AMOUNT AND/OR COMPLEXITY OF DATA TO BE REVIEWED AND ANALYZED
� I performed an independent evaluation of and my interpretation is:
EKG: Suspect atrial tachycardia/flutter with controlled rate at 69, right bundle branch block
CT:
X-rays:
Laboratory Studies:
Other:
� Review of other/old records: I reviewed records�patient had right knee replacement by Dr. Alex 05/16/2024
� Clinical information was obtained by an independent historian: I spoke to daughter at bedside
� Prescriptions/Medications Considered but not given:
� Further testing considered but not performed: Considered x-ray however there is no bony tenderness and there is no direct injury.
RISK OF COMPLICATIONS AND/OR MORBIDITY OR MORTALITY OF PATIENT MANAGEMENT
� Social determinants of health affecting care: Lives at home
� Discussion with other providers:
� Escalation of care including admission/observation vs risk of discharge considered: Favor more of a musculoskeletal etiology as the symptoms have started only in the setting of her doing upper extremity weightlifting. She is
not used to doing this. Although EKG does show an atrial dysrhythmia, she has had this in the past and is anticoagulated. I do not think that her symptoms are related to a flutter/fib.
ANY OTHER UPDATES:
I spoke to patient and daughter again, patient is very eager to just go home without any further testing. She states that she did not even want to come in here to begin with.
Past History
Past History
ED Past Medical History: GERD, HTN, Hypercholesterolemia and Other (Chronic back pain)
ED Past Surgical History: None
Social History
Tobacco: Non-smoker
Alcohol: Occasional
Personal:
Living: with family
Employment: Retired
Phy Exam
Physical Exam
Physical Exam:
See HPI
Course
Orders/Labs/Results
Orders:
Orders
06/03/24 12:04
Electrocardiogram (*1) Urgent
Reason for Study: Chest Pain
EKG- Treatment ONCE
Vital Signs
Initial and Last Documented VS:
Initial Vital Signs
Temp Pulse Resp BP Pulse Ox
36.6 C 72 18 148/59 100
06/03/24 11:59 06/03/24 11:59 06/03/24 11:59 06/03/24 11:59 06/03/24 11:59
Last Documented Vital Signs
Temp Pulse Resp BP Pulse Ox
36.6 C 72 18 148/59 100
06/03/24 11:59 12/23/24 11:59 06/03/24 11:59 06/03/24 11:59 06/03/24 11:59
*Critical Care Note
Total Time (30-74mins, 75-104mins- exclusive of procedures): Not Applicable
ED Attending Note
-
Portions of this chart may have been created with voice recognition software.� Occasional wrong word or��sound alike� substitutions may have occurred due to the inherent limitations of voice recognition software.
Discharge Plan
Departure
Patient Disposition: Home (Routine Discharge)
Date of Disposition: 06/03/24
Time of Disposition: 12:36
Patient with high blood pressure during this ER visit?: Yes
Discharge Problem:
Acute shoulder pain
Instructions: Muscle Strain (DC)
Prescriptions:
No Action
lorazepam 0.5 mg Tablet
0.5 mg PO QID
hydrocodone-acetaminophen 7.5-325 mg tablet
1 tab PO QID
atorvastatin [Lipitor] 20 mg Tablet
20 mg PO HS Qty: 0
Eliquis 2.5 mg Tablet
2.5 mg PO BID Qty: 60 0RF
Jardiance 10 mg Tablet
10 mg PO DAILY Qty: 30 0RF
furosemide 40 mg Tablet
40 mg PO DAILY Qty: 30 0RF
polyethylene glycol 3350 [HealthyLax] 17 gram Powder In Packet
17 g PO DAILYPRN PRN (Reason: constipation) Qty: 0 0RF
metoprolol succinate 100 mg tablet extended release 24 hr
100 mg PO HS
multivitamin Tablet
1 tab PO DAILY
trazodone 50 mg Tablet
50 mg PO HS
amlodipine 5 mg Tablet
5 mg PO DAILY
calcium carbonate 500 mg calcium (1,250 mg) Tablet
500 mg PO DAILY
magnesium 250 mg Tablet
250 mg PO HS
mupirocin 2 % Ointment
1 applic TOPICAL BID
Patient Comments:
started treatment monday05/14/24 and completed BID
cholecalciferol (vitamin D3) [Vitamin D3] 25 mcg (1,000 unit) Tablet
25 mcg PO DAILY
omeprazole 20 mg Tablet,Delayed Release (Dr/Ec)
20 mg PO DAILY
Probiotic 3 billion cell Capsule
3,000 mmu cells PO DAILY
apple cider vinegar 450 mg
1 tab PO BID
diltiazem HCl 180 mg capsule,extended release 24hr
180 mg PO DAILY
cefadroxil 500 mg capsule
500 mg PO BID Qty: 14 0RF
Rx Instructions:
*Take w/ food
*Take w/ probiotic
*POST-OP USE
magnesium hydroxide [Milk of Magnesia] 400 mg/5 mL suspension
30 ml PO HS PRN (Reason: Constipation) Qty: 1 0RF
docusate sodium [Colace] 100 mg capsule
100 mg PO BID Qty: 1 0RF
ondansetron [ondansetron] 4 mg tablet,disintegrating
4 mg PO Q6H PRN (Reason: n/v) Qty: 20 0RF
Rx Instructions:
take 1/2h b/f pain med if recurrent nausea
allow to dissolve in mouth w/o water
oxycodone 5 mg tablet
5 mg PO Q6H PRN (Reason: 1 tab moderate pain, 2 tabs severe pain) Qty: 30 0RF
Rx Instructions:
Ongoing therapy
Saccharomyces boulardii [Florastor] 250 mg capsule
250 mg PO BID Qty: 1 0RF
Activity Restrictions/Additional Instructions:
Follow-up with your doctors. Return here if worse or other concern.
Interventions
Interventions:
*Risk Screen - Suicide Last Done: 06/03/24 11:59
*General Assessment Last Done: 06/03/24 11:59
*Neglect/Abuse Screening Last Done: 06/03/24 11:59
Discharge Date and Time
Print Language: GEORGIAN
== END 2024-06-03 13:19 | disposition home or self-care (01) ==
LOC: EMR 11:55
PROVIDERS: EMERGENCY PHYSICIAN Emergency Medicine; FAMILY PHYSICIAN Family Medicine
DX: M25.519 Pain in unspecified shoulder (principal); I10 Essential (primary) hypertension; E78.00 Pure hypercholesterolemia, unspecified; K21.9 Gastro-esophageal reflux disease without esophagitis; Z96.651 Presence of right artificial knee joint
CPT/HCPCS: 99283; 93005

== ENCOUNTER 2024-08-28 15:01 | Emergency (ER) | payer MEDICARE, OTHER, SELFPAY ==
[2024-08-28] VITALS (7 sets, daily range): BP systolic 105–117; BP diastolic 54–61; BMI 26.9
--- NOTE | 2024-08-28 16:45 | ED.GENMED ---
History of Present Illness
General
Chief Complaint: Dizziness
Time Seen by Provider: 08/28/24 16:44
History of Present Illness
History of Present Illness:
TIME OF INITIAL ENCOUNTER: 4:50 PM
HPI: The patient presents from home due to generalized weakness. She initially indicates she felt that her right knee gave out. She fell. She has no significant pain. She did have a right knee replacement approximately 3 months ago. She had
been getting physical therapy but stopped a few weeks ago.
EXAM:
GENERAL: Well appearing but appears generally weak
HEENT: Moist oral mucosa
CARDIOVASCULAR: No murmurs, normal heart rate, regular rhythm, No chest wall tenderness
PULMONARY: No respiratory distress, breath sounds are clear and equal
ABDOMEN: Soft with no peritoneal signs, no tenderness
NEUROLOGIC: Excellent strength all extremities, no coordination deficits
PSYCHIATRIC: Appropriate mental status, normal insight and judgement
EXTREMITIES: Minimal right knee tenderness diffuse, no edema, moves all extremities equally, surgical scar noted over the anterior aspect of the right knee
SKIN: No rash, no lesions
NUMBER AND COMPLEXITY OF PROBLEMS ADDRESSED AT THE ENCOUNTER
� Chronic conditions affecting care: A-fib, CHF, high blood pressure, hyperlipidemia
� Acute Exacerbation and/or Progression of Chronic Illness: This is an acute problem
� Differential Diagnosis includes: Dehydration, dysrhythmia, KYRA, dehydration
AMOUNT AND/OR COMPLEXITY OF DATA TO BE REVIEWED AND ANALYZED
� I performed an independent evaluation of and my interpretation is:
EKG: Sinus 51, right bundle branch block. On 06/03/2024, the patient was in atrial flutter.
CT: CT of the brain shows no acute abnormality
X-rays: The right knee x-ray shows no acute abnormality, hardware noted
Laboratory Studies: White count 11.2, hemoglobin 10.6, chemistries unremarkable, the BUN to creatinine ratio was elevated (this is chronic), troponin 0.022 which is similar to baseline
Other:
� Review of other/old records: Hemoglobin 04/17/24 was 11.6
� Clinical information was obtained by an independent historian: I spoke to daughter at bedside
� Prescriptions/Medications Considered but not given: Recommend and
� Further testing considered but not performed:
RISK OF COMPLICATIONS AND/OR MORBIDITY OR MORTALITY OF PATIENT MANAGEMENT
� Social determinants of health affecting care: Lives at home
� Discussion with other providers: None needed
� Escalation of care including admission/observation vs risk of discharge considered: Symptoms may be multifactorial. She stopped going to physical therapy a few weeks ago but I recommended to the daughter to resume physical
therapy. We also talked about multiple sedating patient that she is on. Although she did not strike her head a CT was obtained as she has been having gait dysfunction with advanced age on Eliquis. I see no acute abnormality on CT.
ANY OTHER UPDATES:
7:50 PM: The patient was able to walk with a walker. I recommend that she follows up with orthopedics, therapy, and her primary care physician.
Past History
Past History
ED Past Medical History: GERD, HTN, Hypercholesterolemia and Other (Chronic back pain)
ED Past Surgical History: None
Social History
Tobacco: Non-smoker
Alcohol: Occasional
Personal:
Living: with family
Employment: Retired
Phy Exam
Physical Exam
Physical Exam:
See HPI
Course
Orders/Labs/Results
Orders:
Orders
08/28/24 15:07
Electrocardiogram (*1) Urgent
Reason for Study: Atrial Fibrillation
EKG- Treatment ONCE
08/28/24 15:11
Knee, Right 4 or More Views [CR Knee- Right 4 Or More View*] Urgent
Comment:
Reason For Exam: fall, knee gave out
08/28/24 16:46
Complete Blood Count/With Diff Urgent
Comprehensive Metabolic Panel Urgent
Troponin I Urgent
08/28/24 17:47
CT Head W/o Iv Contrast Urgent
Comment:
Reason For Exam: gait dysfunction on Eliquis
0.9% Sodium Chloride 500 ml [Nss] 500 ml IV BOLUS
Abnormal Lab Results
08/28/24
16:46
WBC 11.2 H 10^3/uL
(4.8-10.8)
Hgb 10.6 L g/dL
(12.0-16.0)
Hct 34.4 L %
(37.0-47.0)
MCV 77.5 L fL
(81.0-99.0)
MCH 23.9 L pg
(27.0-31.0)
MCHC 30.8 L g/dL
(33.0-37.0)
RDW 16.8 H %
(11.5-14.5)
Absolute Neuts (auto) 7.5 H 10^3/uL
(1.4-6.5)
Absolute Monos (auto) 1.0 H 10^3/uL
(0.1-0.6)
Absolute Eos (auto) 0.9 H 10^3/uL
(0-0.7)
Lymphocytes % 15.3 L %
(20.5-51.1)
Eosinophils % 8.0 H %
(0-6)
BUN 27 H mg/dl
(7-17)
Glucose 107 H mg/dl
(70-99)
Alkaline Phosphatase 127 H U/L
(38-126)
08/28/24 16:46
08/28/24 16:46
Vital Signs
Initial and Last Documented VS:
Initial Vital Signs
Temp Pulse Resp BP Pulse Ox
36.5 C 49 18 105/55 96
08/28/24 15:04 08/28/24 15:04 08/28/24 15:04 08/28/24 15:04 08/28/24 15:04
Last Documented Vital Signs
Temp Pulse Resp BP Pulse Ox
36.5 C 70 16 106/57 94
08/28/24 15:04 08/28/24 19:45 08/28/24 20:00 08/28/24 19:00 08/28/24 20:10
*Critical Care Note
Total Time (30-74mins, 75-104mins- exclusive of procedures): Not Applicable
ED Attending Note
-
Portions of this chart may have been created with voice recognition software.� Occasional wrong word or��sound alike� substitutions may have occurred due to the inherent limitations of voice recognition software.
Discharge Plan
Departure
Patient Disposition: Home (Routine Discharge)
Date of Disposition: 08/28/24
Time of Disposition: 19:59
Patient with high blood pressure during this ER visit?: Yes
Discharge Problem:
Weakness
Instructions: Weakness
Prescriptions:
No Action
lorazepam 0.5 mg Tablet
0.5 mg PO QID
hydrocodone-acetaminophen 7.5-325 mg tablet
1 tab PO QID
atorvastatin [Lipitor] 20 mg Tablet
20 mg PO HS Qty: 0
Eliquis 2.5 mg Tablet
2.5 mg PO BID Qty: 60 0RF
Jardiance 10 mg Tablet
10 mg PO DAILY Qty: 30 0RF
furosemide 40 mg Tablet
40 mg PO DAILY Qty: 30 0RF
polyethylene glycol 3350 [HealthyLax] 17 gram Powder In Packet
17 g PO DAILYPRN PRN (Reason: constipation) Qty: 0 0RF
metoprolol succinate 100 mg tablet extended release 24 hr
100 mg PO HS
multivitamin Tablet
1 tab PO DAILY
trazodone 50 mg Tablet
50 mg PO HS
amlodipine 5 mg Tablet
5 mg PO DAILY
calcium carbonate 500 mg calcium (1,250 mg) Tablet
500 mg PO DAILY
magnesium 250 mg Tablet
250 mg PO HS
mupirocin 2 % Ointment
1 applic TOPICAL BID
Patient Comments:
started treatment monday05/14/24 and completed BID
cholecalciferol (vitamin D3) [Vitamin D3] 25 mcg (1,000 unit) Tablet
25 mcg PO DAILY
omeprazole 20 mg Tablet,Delayed Release (Dr/Ec)
20 mg PO DAILY
Probiotic 3 billion cell Capsule
3,000 mmu cells PO DAILY
apple cider vinegar 450 mg
1 tab PO BID
diltiazem HCl 180 mg capsule,extended release 24hr
180 mg PO DAILY
cefadroxil 500 mg capsule
500 mg PO BID Qty: 14 0RF
Rx Instructions:
*Take w/ food
*Take w/ probiotic
*POST-OP USE
magnesium hydroxide [Milk of Magnesia] 400 mg/5 mL suspension
30 ml PO HS PRN (Reason: Constipation) Qty: 1 0RF
docusate sodium [Colace] 100 mg capsule
100 mg PO BID Qty: 1 0RF
ondansetron [ondansetron] 4 mg tablet,disintegrating
4 mg PO Q6H PRN (Reason: n/v) Qty: 20 0RF
Rx Instructions:
take 1/2h b/f pain med if recurrent nausea
allow to dissolve in mouth w/o water
oxycodone 5 mg tablet
5 mg PO Q6H PRN (Reason: 1 tab moderate pain, 2 tabs severe pain) Qty: 30 0RF
Rx Instructions:
Ongoing therapy
Saccharomyces boulardii [Florastor] 250 mg capsule
250 mg PO BID Qty: 1 0RF
Referrals:
Gerhard Alex MD [Active] - Follow up in 2-3 days
UNKNOWN - PT DOES,NOT KNOW [Family Provider] -
Activity Restrictions/Additional Instructions:
White blood cell count is minimally elevated 11.2, hemoglobin is 10.6 which is near baseline. Chemistry levels were unremarkable. I recommend that you follow with your orthopedist as well as primary care physician. I also would recommend that you
resume physical therapy. Several of the medications that you are on are sedating.
Interventions
Interventions:
*Risk Screen - Suicide Last Done: 08/28/24 15:04
*General Assessment Last Done: 08/28/24 15:04
*Neglect/Abuse Screening Last Done: 08/28/24 15:04
*ED- Fall Risk Assessment Last Done: 08/28/24 16:58
*Nursing Disposition Last Done: 08/28/24 20:18
ED- Cardiac Assessment Last Done: 08/28/24 17:00
ED-Musculoskeletal Assessment Last Done: 08/28/24 16:58
ED- Neurological Assessment Last Done: 08/28/24 16:58
ED-Skin Assessment Last Done: 08/28/24 16:58
ED Swallowing Screen Last Done: 08/28/24 16:58
Discharge Date and Time
Print Language: DANISH
[2024-08-28 17:00] LABS: % Basophils 0.3 % (0-2); % Immature Granulocytes 0.3 % (0-0.5); % Lymphocytes 15.3 % (20.5-51.1); % Monocytes 8.6 % (1.7-9.3); % Neutrophils 67.5 % (42.2-75.2); Absolute Eosinophils 0.9 10^3/uL (0-0.7); Absolute Lymphocytes 1.7 10^3/uL (1.2-3.4); Absolute Neutrophils 7.5 10^3/uL (1.4-6.5); Hematocrit 34.4 % (37.0-47.0); Hemoglobin 10.6 g/dL (12.0-16.0); Mean Corp Hgb Conc. 30.8 g/dL (33.0-37.0); Mean Corpuscular Hgb 23.9 pg (27.0-31.0); Mean Corpuscular Volume 77.5 fL (81.0-99.0); Mean Platelet Volume 9.3 fL (7.4-10.4); Nucleated Red Blood Cells % 0 %; Platelet Count 282 10^3/uL (130-400); Red Blood Cell Count 4.44 10^6/uL (4.20-5.40); Red Cell Dist. Width 16.8 % (11.5-14.5); White Blood Cell Count 11.2 10^3/uL (4.8-10.8)
[2024-08-28 17:12] LABS: ALT (SGPT) 17 U/L (0-35); AST (SGOT) 25 U/L (14-36); Albumin 4.3 g/dl (3.5-5.0); Alkaline Phosphatase 127 U/L (38-126); Blood Urea Nitrogen 27 mg/dl (7-17); Calcium 9.7 mg/dl (8.4-10.2); Carbon Dioxide 29 mmol/L (22-30); Chloride 98 mmol/L (98-107); Estimated Creatinine Clearance 31 ml/min; Glucose 107 mg/dl (70-99); Potassium 4.1 mmol/L (3.5-5.1); Sodium 136 mmol/L (135-145); Total Bilirubin 0.4 mg/dl (0.2-1.3); Total Protein 7.9 g/dl (6.3-8.2); eGFR > 60.00
[2024-08-28 17:23] LABS: Troponin I 0.022 ng/ml
[2024-08-28] MEDS: NSS 500 IV (17:54)
== END 2024-08-28 20:18 | disposition home or self-care (01) ==
LOC: EMR 15:01
PROVIDERS: EMERGENCY PHYSICIAN Emergency Medicine
DX: R53.1 Weakness (principal); K21.9 Gastro-esophageal reflux disease without esophagitis; I10 Essential (primary) hypertension; E78.00 Pure hypercholesterolemia, unspecified; I48.91 Unspecified atrial fibrillation; Z79.01 Long term (current) use of anticoagulants; Z96.651 Presence of right artificial knee joint
CPT/HCPCS: 99284; 96360; 70450; 73564; 80053; 84484; 85025; 93005

== ENCOUNTER → 2025-02-20 09:38 | Outpatient (REF) | payer MEDICARE, OTHER, SELFPAY | LOC: HWWDC 09:38 | PROVIDERS: ATTENDING PHYSICIAN Obstetrics & Gynecology; FAMILY PHYSICIAN Family Medicine; REFERRING PHYSICIAN Obstetrics & Gynecology | DX: Z12.31 Encounter for screening mammogram for malignant neoplasm of breast (principal) | CPT/HCPCS: 77063; 77067 ==